=== PATIENT | female | born 1995 | race Caucasian/White ===

== ENCOUNTER 2016-10-30 16:51 | Emergency (ER) | payer OTHER ==
[2016-10-30 17:04] VITALS: BP 114/73; PULSE 100; TEMP 98.6; BMI 31.7
--- NOTE | 2016-10-30 19:37 | PDOC ---
History of Present Illness - General Chief Complaint: Cold Symptoms Stated Complaint: BOTH EAR PAIN/COUGH Time Seen by Provider: 10/30/16 17:53 History Source: Patient Exam Limitations: No Limitations - History of Present Illness Initial Comments: 10/30/16 19:31 RIGHT EAR PAIN X 4 DAYS; WITH FEVER Timing/Duration: reports: just prior to arrival Severity: reports: mild Associated Symptoms: reports: earache, nasal congestion, nasal drainage. denies : denies symptoms, cough, fever/chills, wheezing Past History - Past Medical History Allergies/Adverse Reactions: Allergies Allergy/AdvReac Type Severity Reaction Status Date / Time shrimp Allergy Mild Hives Verified 10/30/16 16:54 Fish Containing Products Allergy Verified 10/30/16 16:54 fish derived Allergy Verified 10/30/16 16:54 Home Medications: Ambulatory Orders Vitamins (Sjr) - 1 tab PO DAILY 10/23/15 Acetaminophen [Tylenol .Regular Strength -] 650 mg PO Q3H PRN #0 tablet Benzocaine [Americaine 20% Marsing -] 1 spray TP PRN PRN #0 bottle 10/25/15 Ferrous Sulfate [Feosol] 325 mg PO BIDWM ud 10/25/15 Ibuprofen [Motrin -] 200 mg PO Q4H PRN #0 tablet 10/25/15 Vitamins (Sjr) - 1 tab PO DAILY tablet 10/25/15 Asthma: No Cancer: No Cardiac Disorders: No Diabetes: No HTN: No Seizures: No Thyroid Disease: No Other medical history: none - Immunization History Immunization Up to Date: Yes - Psycho/Social/Smoking Cessation Hx Anxiety: No Suicidal Ideation: No Smoking History: Never smoked Have you smoked in the past 12 months: No Information on smoking cessation initiated: No Hx Alcohol Use: No Drug/Substance Use Hx: No Substance Use Type: None Hx Substance Use Treatment: No Review of Systems - Review of Systems Constitutional: No: Chills, Fever, Malaise HEENTM: Yes: Ear Pain, Ear Discharge. No: Eye Pain, Nose Congestion, Throat Pain Respiratory: No: Cough Cardiac (ROS): No: Symptoms Reported ABD/GI: No: Symptoms Reported : No: Symptoms Reported Musculoskeletal: No: Symptoms Reported *Physical Exam - Vital Signs Last Vital Signs Temp Pulse Resp BP Pulse Ox 98.6 F 100 H 18 114/73 100 10/30/16 16:55 10/30/16 16:55 10/30/16 16:55 10/30/16 16:55 10/30/16 16:55 - Physical Exam General Appearance: Yes: Appropriately Dressed. No: Apparent Distress HEENT: positive: LINDA, Normal ENT Inspection, Nasal Congestion, Rhinorrhea, TM Bulging, TM Dull, TM Erythema (RIGHT EAR SMALL AMOUNT OF FLUIDS IN CANAL WITH STS TO ANTERIOR CANAL ). negative: Normal Voice, Symmetrical, Pharynx Normal Neck: positive: Supple. negative: Tender, Rigid, Lymphadenopathy (R), Lymphadenopathy (L) Respiratory/Chest: positive: Lungs Clear. negative: Chest Tender, Respiratory Distress, Accessory Muscle Use ED Treatment Course - ADDITIONAL ORDERS Additional order review: Laboratory Results 10/30/16 19:00 Urine HCG, Qual Negative Medical Decision Making - Medical Decision Making 10/30/16 19:34 WILL TREAT WITH AUGMENTIN; AND FOLLOW UP WITH DR PACHECO IN 10 DAYS *DC/Admit/Observation/Transfer Diagnosis at time of Disposition: Actinic otitis externa Qualifiers: Laterality: right Chronicity: acute Qualified Code(s): H60.511 - Acute actinic otitis externa, right ear - Discharge Dispostion Disposition: HOME Condition at time of disposition: Stable Admit: No - Patient Instructions Additional Instructions: MOTRIN FOR PAIN; FOLLOW UP IN [address] PACHECO - Post Discharge Activity Work/School Note: Back to Work
== END 2016-10-30 21:11 | disposition home or self-care (01) ==
LOC: JER 16:51 → JERFT 16:51
DX: H60.511 Acute actinic otitis externa, right ear (principal)
CPT/HCPCS: 84703; 99281-25

== ENCOUNTER 2016-11-18 14:25 | Emergency (ER) | payer OTHER ==
[2016-11-18 14:54] VITALS: BMI 31.3
--- NOTE | 2016-11-18 15:11 | PDOC ---
History of Present Illness - General Chief Complaint: Allergic Reaction Stated Complaint: ALLERGIC REACTION, FACE NUMBNESS Time Seen by Provider: 11/18/16 15:09 - History of Present Illness Initial Comments: 11/18/16 15:11 CHIEF COMPLAINT: allergic reaction HISTORY OF PRESENT ILLNESS: 21 yo F with no significant PMH presents to ED with allergic reaction s/p ingesting new medication. Patient states she has had cold symptoms since and has been taking NyQuil and DayQuil without any problems. Today a neighbor recommended that she take "Bronchochem", which she did around 1pm. Around 2 pm she started feeling dizziness and numbness and swelling to her face. She also reports tongue and lip tingling, and feels that "the pills are still in my throat." No recent travel or sick contacts. PAST MEDICAL HISTORY: Denies past medical history FAMILY HISTORY: Denies SOCIAL HISTORY:Denies tobacco, alcohol, illicit drug use. SURGICAL HISTORY: Denies ALLERGIES: No known drug allergies REVIEW OF SYSTEMS General/Constitutional: Denies fever or chills. Denies weakness, weight change. HEENT: I have a rash and tingling on my face. Denies change in vision. Denies ear pain or discharge. Denies sore throat. Cardiovascular: Denies chest pain or shortness of breath. Respiratory: Denies cough, wheezing, or hemoptysis. Gastrointestinal: Denies nausea, vomiting, diarrhea or constipation. Denies rectal bleeding. Genitourinary: Denies dysuria, frequency, or change in urination. Musculoskeletal: Denies joint or muscle swelling or pain. Denies neck or back pain. Skin and breasts: Denies rash or easy bruising. Neurologic: Denies headache, vertigo, loss of consciousness, or loss of sensation. PHYSICAL EXAM General Appearance: Well-appearing, appropriately dressed. No apparent distress , no intoxication. HEENT: Mildly erythematous macular rash to face. No swelling to mouth, tongue, lips, uvula, tonsils. Nasal congestion. EOMI, PERRLA, normal ENT inspection, normal voice, TMs normal, pharynx normal. No conjunctival pallor. No photophobia, scleral icterus. Neck: Supple. Trachea midline. No tenderness, rigidity, carotid bruit, stridor , lymphadenopathy, or thyromegaly. Respiratory/Chest: Lungs CTAB. Cardiovascular: RRR. S1, S2. Vascular Pulses: Dorsalis-Pedis (R): 2+, Dorsalis-Pedis (L): 2+ Gastrointestinal/Abdominal: Normal bowel sounds. Abdomen soft, non-distended. No tenderness or rebound tenderness. No organomegaly, pulsatile mass, guarding , hernia, hepatomegaly, splenomegaly. Musculoskeletal/Extremities: Normal inspection. FROM of all extremities, normal capillary refill. Pelvis Stable. No CVA tenderness. No tenderness to extremities, pedal edema, swelling, erythema or deformity. Integumentary: See HEENT. Appropriate color, dry, warm. No cyanosis, jaundice or rash Neurologic: lvn lpn II-XII intact. Fully oriented, alert. Appropriate mood/affect. Motor strength 5/5. No appreciable EOM palsy, facial droop or sensory deficit. Past History - Past Medical History Allergies/Adverse Reactions: Allergies Allergy/AdvReac Type Severity Reaction Status Date / Time shrimp Allergy Mild Hives Verified 11/18/16 14:48 Fish Containing Products Allergy Verified 11/18/16 14:48 fish derived Allergy Verified 11/18/16 14:48 Home Medications: Ambulatory Orders Oseltamivir Phosphate [Tamiflu] 75 mg PO BID #10 capsule 11/18/16 Asthma: No Cancer: No Cardiac Disorders: No Diabetes: No HTN: No Seizures: No Thyroid Disease: No Other medical history: denies - Immunization History Immunization Up to Date: Yes - Psycho/Social/Smoking Cessation Hx Anxiety: No Suicidal Ideation: No Smoking History: Never smoked Have you smoked in the past 12 months: No Hx Alcohol Use: No Drug/Substance Use Hx: No Substance Use Type: None Hx Substance Use Treatment: No *Physical Exam - Vital Signs Last Vital Signs Temp Pulse Resp BP Pulse Ox 98.3 F 115 H 18 114/77 98 11/18/16 14:49 11/18/16 14:49 11/18/16 14:49 11/18/16 14:49 11/18/16 14:49 Medical Decision Making - Medical Decision Making 11/18/16 16:28 21 yo F with no significant PMH presents to ED with allergic reaction s/p ingesting new medication. -50 mg Benadryl Patient has tingling and foreign object sensation to throat despite no appreciable swelling. -10 mg Decadron Flu swab sent as patient does currently have URI symptoms. Patient is positive for influenza A. Tamiflu 75 mg bid x 5 days rx sent to pharm. Advised patient to take medication as prescribed and follow up with primary care doctor next week. Advised patient of signs and symptoms for return to ED. Patient verbalized understanding and agrees to plan. *DC/Admit/Observation/Transfer Diagnosis at time of Disposition: Influenza A - Discharge Dispostion Disposition: HOME Condition at time of disposition: Stable Admit: No - Prescriptions Prescriptions: Oseltamivir Phosphate [Tamiflu] 75 mg PO BID #10 capsule - Referrals Referrals: Gwen Parra MD [Primary Care Provider] - - Patient Instructions Printed Discharge Instructions: DI for Adverse Drug Reaction -- Allergic Additional Instructions: It is unclear which ingredient in BronchoChem you may be allergic to, please discontinue taking the medication and avoid any medications containing. Please take medication as prescribed. You may take Motrin (ibuprofen) as needed for fever/pain. Follow up with your primary care doctor next week. If you experience fever unrelieved by Motrin, nausea, vomiting, diarrhea, or any new or worsening symptoms, please return to the ER. - Post Discharge Activity Work/School Note: Back to Work
[2016-11-18] MEDS ORDERED: SODIUM CHLORIDE 0.9% 500 ML INFUS.BAG IV ONE (15:14)
[2016-11-18] MEDS ORDERED: DEXAMETHASONE LIQUID 0.5 MG/5 ML 240 ML BULK BOTTLE PO ONE (15:26)
[2016-11-18] MEDS ORDERED: DEXAMETHASONE SOD PHOSPHATE 10 MG/1 ML VIAL ONE (15:31)
[2016-11-18 17:26] VITALS: BP 115/68; PULSE 90; TEMP 99.2
== END 2016-11-18 17:18 | disposition home or self-care (01) ==
LOC: JER 14:25
PROC: 3E033GC Introduction of Other Therapeutic Substance into Peripheral Vein, Percutaneous Approach (ICD-10-PCS; principal; 2016-11-18)
DX: L27.0 Generalized skin eruption due to drugs and medicaments taken internally (principal); T50.995A Adverse effect of other drugs, medicaments and biological substances, initial encounter; J09.X2 Influenza due to identified novel influenza A virus with other respiratory manifestations; Y92.038 Other place in apartment as the place of occurrence of the external cause
CPT/HCPCS: 84703; 87804; 96374; 99282-25

== ENCOUNTER → 2017-04-16 | Emergency (ER) | payer OTHER ==
[~2017-04-16] MED LIST: ONDANSETRON 4 MG/2 ML VIAL IVPUSH ONE; ONDANSETRON 4 MG/2 ML VIAL ONE; SODIUM CHLORIDE 1,000 ML IV STA
[2017-04-16 20:30] VITALS: TEMP 98.1; BMI 32.1
--- NOTE | 2017-04-16 21:51 | PDOC ---
History of Present Illness - History of Present Illness Initial Comments: 04/16/17 23:06 pt is 22F, 7 weeks complaining 8/10 suprapubic pain, frontal headache and vomitingx5 since 5pm today. The suprapubic pain is worse with movement. no vaginal bleed or other discharge. No recent strenuous activity, falls or traumas. No one is the household is sick.Pt only take vitamins. OBGYN is Lesvia Jaquez, was seen last , scheduled to be seen next . LAst U/S was a [place] 2 weeks ago and was normal. This is the patient 2nd . <Ayaan Amaro - Last Filed: 04/17/17 00:05> <Neftaly Patel - Last Filed: 04/17/17 00:48> - General Chief Complaint: Pain Stated Complaint: 7 WEEKS /HEADACE Time Seen by Provider: 04/16/17 21:24 Past History - Past Medical History Asthma: No Cancer: No Cardiac Disorders: No Diabetes: No HTN: No Seizures: No Thyroid Disease: No - Immunization History Immunization Up to Date: Yes - Psycho/Social/Smoking Cessation Hx Anxiety: No Suicidal Ideation: No Smoking History: Never smoked Have you smoked in the past 12 months: No Hx Alcohol Use: No Drug/Substance Use Hx: No Substance Use Type: None Hx Substance Use Treatment: No <Ayaan Amaro - Last Filed: 04/17/17 00:05> <Neftaly Patel - Last Filed: 04/17/17 00:48> - Past Medical History Allergies/Adverse Reactions: Allergies Allergy/AdvReac Type Severity Reaction Status Date / Time shrimp Allergy Mild Hives Verified 04/16/17 20:30 Fish Containing Products Allergy Verified 04/16/17 20:30 fish derived Allergy Verified 04/16/17 20:30 Home Medications: Ambulatory Orders Oseltamivir Phosphate [Tamiflu] 75 mg PO BID #10 capsule 11/18/16 Ondansetron [Zofran *Odt*] 8 mg SL PRN #3 od.tablet 04/16/17 Review of Systems - Review of Systems Constitutional: Yes: See HPI HEENTM: No: Symptoms Reported Respiratory: No: Cough, Orthopnea, Shortness of Breath, Stridor, Wheezing Cardiac (ROS): No: Chest Pain, Palpitations, Syncope, Chest Tightness ABD/GI: Yes: See HPI, Poor Appetite. No: Abd. Pain w/ defecation : No: Burning, Dysuria, Discharge, Hematuria Musculoskeletal: No: Symptoms Reported Integumentary: No: Symptoms Reported <Ayaan Amaro - Last Filed: 04/17/17 00:05> *Physical Exam - Vital Signs Last Vital Signs Temp Pulse Resp BP Pulse Ox 98.1 F 74 18 113/66 99 04/16/17 20:28 04/16/17 20:28 04/16/17 20:28 04/16/17 20:28 04/16/17 20:28 - Physical Exam General Appearance: Yes: Nourished, Appropriately Dressed. No: Apparent Distress HEENT: positive: EOMI, LINDA, Normal ENT Inspection. negative: Pale Conjunctivae Neck: positive: Trachea midline, Normal Thyroid, Supple Cardiovascular: positive: Regular Rhythm, Regular Rate, S1, S2. negative: Bradycardia, Tachycardia Vascular Pulses: Carotid (R): 2+, Carotid (L): 2+, Dorsalis-Pedis (R): 2+, Doralis-Pedis (L): 2+ Integumentary: positive: Normal Color, Dry. negative: Erythema, Diaphoresis Neurologic: positive: recreation engineer II-XII NML intact, Fully Oriented, Alert, Normal Mood/ Affect <Ayaan Amaro - Last Filed: 04/17/17 00:05> - Vital Signs Last Vital Signs Temp Pulse Resp BP Pulse Ox 98.1 F 74 18 113/66 99 04/16/17 20:28 04/16/17 20:28 04/16/17 20:28 04/16/17 20:28 04/16/17 20:28 <Neftaly Patel - Last Filed: 04/17/17 00:48> ED Treatment Course - LABORATORY CBC & Chemistry Diagram: 04/16/17 21:49 04/16/17 21:49 <Ayaan Amaro - Last Filed: 04/17/17 00:05> - LABORATORY CBC & Chemistry Diagram: 04/16/17 21:49 04/16/17 21:49 - ADDITIONAL ORDERS Additional order review: Laboratory Results 04/16/17 04/16/17 04/16/17 22:30 22:07 21:49 Sodium 136 Potassium 3.8 Chloride 104 Carbon Dioxide 25 Anion Gap 7 L BUN 7 D Creatinine 0.4 L Creat Clearance w eGFR > 60 Random Glucose 87 Calcium 9.0 Total Bilirubin 0.5 D AST 14 L D ALT 24 D Alkaline Phosphatase 80 Total Protein 7.1 Albumin 4.0 Beta HCG, Quant 64589.6 Urine Color Urine Appearance Urine pH Urine Protein Urine Glucose (UA) Urine Ketones Urine Blood Urine Nitrite Urine Bilirubin Urine Urobilinogen Ur Leukocyte Esterase Urine HCG, Qual Positive 04/16/17 21:49 Sodium Potassium Chloride Carbon Dioxide Anion Gap BUN Creatinine Creat Clearance w eGFR Random Glucose Calcium Total Bilirubin AST ALT Alkaline Phosphatase Total Protein Albumin Beta HCG, Quant Urine Color Yellow Urine Appearance Clear Urine pH 6.0 Urine Protein Negative Urine Glucose (UA) Negative Urine Ketones Trace H Urine Blood Negative Urine Nitrite Negative Urine Bilirubin Negative Urine Urobilinogen Negative Ur Leukocyte Esterase Negative Urine HCG, Qual 04/16/17 21:49 RBC 4.20 MCV 90.0 MCHC 33.4 RDW 13.0 D MPV 9.0 Neutrophils % 73.8 Lymphocytes % 18.8 D Monocytes % 7.1 Eosinophils % 0.1 Basophils % 0.2 - Medications Given in the ED: ED Medications Discontinued Medications Generic Name Dose Route Start Last Admin Trade Name Freq PRN Reason Stop Dose Admin Sodium Chloride 1,000 mls @ 1,000 mls/hr 04/16/17 21:46 04/16/17 22:16 Normal Saline - IV 04/16/17 22:45 1,000 mls/hr ASDIR STA Administration Ondansetron HCl 4 mg 04/16/17 21:47 04/16/17 22:06 Zofran Injection IVPUSH 04/16/17 21:48 4 mg ONCE ONE Administration <Neftaly Patel - Last Filed: 04/17/17 00:48> Medical Decision Making - Medical Decision Making 04/16/17 22:58 pt is 22F, 7 weeks complaining 8/10 suprapubic pain, headache and vomitingx5 since 5pm today. Urine HCG and beta HCG was ordered, confirmed, CBC, CMP showed no abnormality. Feels much better after course of zofran and NS bolus. Patient walks and feels better. Has appointment with SUREKHA Jaquez on . Ok with being discharged tonight with Rx for Zofran. 04/16/17 23:02 07/10/17 23:06 <Ayaan Amaro - Last Filed: 04/17/17 00:05> *DC/Admit/Observation/Transfer <Ayaan Amaro - Last Filed: 04/17/17 00:05> <Neftaly Patel - Last Filed: 04/17/17 00:48> Diagnosis at time of Disposition: Hyperemesis arising during - Discharge Dispostion Disposition: HOME Condition at time of disposition: Good - Prescriptions Prescriptions: Ondansetron [Zofran *Odt*] 8 mg SL PRN #3 od.tablet - Referrals Referrals: Gwen Parra MD [Primary Care Provider] - - Patient Instructions Printed Discharge Instructions: Hyperemesis Gravidarum
[2017-04-16 22:01] LABS: BASOPHIL 0.2 % (0-2.0); EOSINOPHIL 0.1 % (0-4.5); MCH 30.1 pg (25.7-33.7); MCHC 33.4 g/dl (32.0-36.0); NEUTROPHILS 73.8 % (42.8-82.8); PLATELET COUNT 233 K/MM3 (134-434); WHITE BLOOD COUNT 9.9 K/mm3 (4.0-10.0)
[2017-04-16 22:23] LABS: URINE APPEARANCE CLEAR; URINE BILIRUBIN NEGATIVE (NEGATIVE); URINE BLOOD NEGATIVE (NEGATIVE); URINE COLOR YELLOW; URINE GLUCOSE (UA) NEGATIVE (NEGATIVE); URINE KETONE TRACE (NEGATIVE); URINE LEUK ESTERASE NEGATIVE (NEGATIVE); URINE NITRITE NEGATIVE (NEGATIVE); URINE PROTEIN NEGATIVE (NEGATIVE); URINE UROBILINOGEN NEGATIVE E.U./dl (0.2-1.0)
[2017-04-16 22:31] LABS: ANION GAP 7 (8-16); CO2 25 mmol/L (21-32); CREATININE 0.4 mg/dL (0.55-1.02); GLUCOSE,RANDOM 87 mg/dL (74-106); SGOT/AST 14 U/L (15-37); SGPT/ALT 24 U/L (12-78)
[2017-04-16 22:32] LABS: ALK PHOS 80 U/L (45-117); BILIRUBIN,TOTAL 0.5 mg/dL (0.2-1.0); TOT PROT 7.1 g/dl (6.4-8.2)
--- NOTE | 2017-04-17 00:09 | PDOC ---
Attending Attestation - Resident Resident Name: Ayaan Amaro - ED Attending Attestation I have performed the following: I have examined & evaluated the patient, The case was reviewed & discussed with the resident, I agree w/resident's findings & plan, Exceptions are as noted <Neftaly Patel - Last Filed: 04/17/17 00:08> - Resident Resident Name: Ayaan Amaro - ED Attending Attestation I have performed the following: I have examined & evaluated the patient, The case was reviewed & discussed with the resident, I agree w/resident's findings & plan, Exceptions are as noted - HPI HPI: 04/17/17 00:11 The patient is a 22 year old female (7 weeks ) with no significant past medical history who presents to the ED for suprapubic pain since 5am. Patient rates pain as 8/10 and reports having associated nausea and vomiting, but no diarrhea. Her pain is worsen with movement. Denies vaginal bleeding or discharge. Patient also has complaints of frontal headache. No recent sick contacts or recent travels. Patient is scheduled to be seen by her DRYCLEANER next . Her last ultrasound was 2 weeks ago at [place], which was normal. The patient denies fever, chills, cough, SOB, chest pain, and palpitations. The patient denies dysuria, hematuria, urgency, and frequency. PCP: Dr. Gwen Latham-Sergo DRYCLEANER: Dr. Lesvia Jaquez - Physicial Exam PE: 04/17/17 00:11 GENERAL: Well-appearing, well-nourished. No apparent distress. HEENT: Normocephalic, atraumatic. PERRL, EOM intact. CARDIOVASCULAR: Normal S1, S2. Regular rate and rhythm. PULMONARY: Clear to auscultation bilaterally. ABDOMEN: Soft, non-distended, non-tender. EXTREMITIES: Normal ROM in all four extremities. No gross deformities. SKIN: Warm, dry. No rash NEUROLOGICAL: No focal neurological deficits. <Martha Sandoval - Last Filed: 04/17/17 00:21> Medical Decision Making - Medical Decision Making 04/17/17 00:11 Documentation prepared by Martha Sandoval, acting as regional medical director for Neftaly Patel MD/DO. <Bharrat,Martha - Last Filed: 04/17/17 00:21>
[2017-04-17 00:58] VITALS: BP 103/63; PULSE 65
== END | disposition home or self-care (01) ==
LOC: JER 20:22
PROC: 3E0337Z Introduction of Electrolytic and Water Balance Substance into Peripheral Vein, Percutaneous Approach (ICD-10-PCS; principal; 2017-04-16)
PROC: 3E033GC Introduction of Other Therapeutic Substance into Peripheral Vein, Percutaneous Approach (ICD-10-PCS; 2017-04-16)
DX: O26.891 Other specified pregnancy related conditions, first trimester (principal); O21.0 Mild hyperemesis gravidarum; Z3A.01 Less than 8 weeks gestation of pregnancy
CPT/HCPCS: 36415; 80053; 81003; 84702; 84703; 85025; 96361; 96374; 99283-25

== ENCOUNTER 2017-05-29 18:24 | Emergency (ER) | payer OTHER ==
[2017-05-29 18:33] VITALS: BP 126/68; PULSE 92; TEMP 98.9; BMI 28.3
--- NOTE | 2017-05-29 20:26 | PDOC ---
History of Present Illness - General History Source: Patient Exam Limitations: No Limitations - History of Present Illness Initial Comments: 05/29/17 21:02 The patient is a 22 year old female (13 weeks, ) with no significant past medical history who presents to the ED for 4 days of nausea, vomiting, and diarrhea. Patient reports her boyfriend was also ill with similar symptoms last week. She also has some complaints of pelvic discomfort, which she describes as a pressure-like sensation. Denies vaginal bleeding or discharge. Denies dysuria , hematuria, urgency, and frequency. Patient states she still feels the baby moving. States she felt warm earlier today, which resolved throughout the day. The patient denies diaphoresis, chills, cough, SOB, chest pain, and palpitations. Allergies: NKDA Social History: No alcohol, tobacco, or drug use reported. Past Surgical History: None reported PCP: Dr. Gwen Singh TRIPLE VALVE TESTER: Dr. Lesvia Jaquez <Martha Sandoval - Last Filed: 05/29/17 21:02> - General History Source: Patient <Henrry Mckee - Last Filed: 05/29/17 23:48> - General Chief Complaint: Diarrhea Stated Complaint: STOMACH PAIN/13 WKS Time Seen by Provider: 05/29/17 20:23 Past History <Martha Sandoval - Last Filed: 05/29/17 21:02> - Past Medical History Asthma: No Cancer: No Cardiac Disorders: No Diabetes: No HTN: No Seizures: No Thyroid Disease: No - Immunization History Immunization Up to Date: Yes - Psycho/Social/Smoking Cessation Hx Anxiety: No Suicidal Ideation: No Smoking History: Never smoked Have you smoked in the past 12 months: No Information on smoking cessation initiated: No Hx Alcohol Use: No Drug/Substance Use Hx: No Substance Use Type: None Hx Substance Use Treatment: No <Henrry Mckee - Last Filed: 05/29/17 23:48> - Past Medical History Allergies/Adverse Reactions: Allergies Allergy/AdvReac Type Severity Reaction Status Date / Time shrimp Allergy Mild Hives Verified 05/29/17 18:31 Fish Containing Products Allergy Verified 05/29/17 18:31 fish derived Allergy Verified 05/29/17 18:31 Home Medications: Ambulatory Orders Oseltamivir Phosphate [Tamiflu] 75 mg PO BID #10 capsule 11/18/16 Ondansetron [Zofran *Odt*] 8 mg SL PRN #3 od.tablet 04/16/17 Metoclopramide HCl [Reglan] 10 mg PO QID #60 tablet 05/29/17 Review of Systems - Review of Systems Able to Perform ROS?: Yes Comments:: 05/29/17 21:03 CONSTITUTIONAL: +subjective fever Absent: no chills, no fatigue EYES: Absent: visual changes ENT: Absent: ear pain, no sore throat CARDIOVASCULAR: Absent: chest pain, no palpitations RESPIRATORY: Absent: cough, no SOB GI: +pelvic discomfort, nausea, vomiting, diarrhea Absent: no constipation GENITOURINARY: Absent: dysuria, no frequency, no hematuria MUSCULOSKELETAL: Absent: back pain, no arthralgia, no myalgia SKIN: Absent: rash NEURO: Absent: headache <Martha Sandoval - Last Filed: 05/29/17 21:02> *Physical Exam - Vital Signs Last Vital Signs Temp Pulse Resp BP Pulse Ox 98.9 F 92 H 18 126/68 99 05/29/17 18:32 05/29/17 18:32 05/29/17 18:32 05/29/17 18:32 05/29/17 18:32 - Physical Exam Comments: 05/29/17 21:03 GENERAL: Well-appearing, well-nourished. No apparent distress. HEENT: Normocephalic, atraumatic. PERRL, EOM intact. Dry oral mucosa. CARDIOVASCULAR: Normal S1, S2. Regular rate and rhythm. PULMONARY: Clear to auscultation bilaterally. ABDOMINAL: Soft. Non-tender. Non-distended. No rebound or guarding. Normoactive bowel sounds. PELVIC: Deferred to ultrasound. EXTREMITIES: Normal ROM in all four extremities. No gross deformities. SKIN: Warm, dry. No rash NEUROLOGICAL: No focal neurological deficits. <Martha Sandoval - Last Filed: 05/29/17 21:02> - Vital Signs Last Vital Signs Temp Pulse Resp BP Pulse Ox 98.9 F 92 H 18 126/68 99 05/29/17 18:32 05/29/17 18:32 05/29/17 18:32 05/29/17 18:32 05/29/17 18:32 <Henrry Mckee - Last Filed: 05/29/17 23:48> ED Treatment Course - LABORATORY CBC & Chemistry Diagram: 05/29/17 20:45 05/29/17 20:45 - ADDITIONAL ORDERS Additional order review: Laboratory Results 05/29/17 20:45 Urine Color Yellow Urine Appearance Clear Urine pH 6.0 Urine Protein Negative Urine Glucose (UA) Negative Urine Ketones 2+ H Urine Blood 1+ H Urine Nitrite Negative Urine Bilirubin Negative Urine Urobilinogen Negative Ur Leukocyte Esterase Negative Urine RBC 1 Urine WBC 2 Ur Epithelial Cells Rare Urine Mucus Moderate 05/29/17 20:45 RBC 4.00 MCV 89.0 MCHC 34.3 RDW 12.7 MPV 8.7 Neutrophils % 83.2 H Lymphocytes % 11.6 D Monocytes % 5.1 Eosinophils % 0.0 D Basophils % 0.1 - Medications Given in the ED: ED Medications Discontinued Medications Generic Name Dose Route Start Last Admin Trade Name Jonyq PRN Reason Stop Dose Admin Metoclopramide HCl 10 mg 05/29/17 20:28 05/29/17 20:53 Reglan Injection - IVPUSH 05/29/17 20:29 10 mg ONCE ONE Administration <Martha Sandoval - Last Filed: 05/29/17 21:02> - LABORATORY CBC & Chemistry Diagram: 05/29/17 20:45 05/29/17 20:45 <Henrry Mckee - Last Filed: 05/29/17 23:48> Medical Decision Making - Medical Decision Making 05/29/17 23:01 Dr. Mckee: The scribe's documentation has been prepared under my direction and personally reviewed by me in its entirery. I confirm that the note above accurately reflects all work, treatment, procedures, and medical decision making performed by me. <Henrry Mckee - Last Filed: 05/29/17 23:48> *DC/Admit/Observation/Transfer - Attestations Scribe Attestion: 05/29/17 21:03 Documentation prepared by Martha Sandoval, acting as medical information officer for Henrry Mckee DO. <Martha Sandoval - Last Filed: 05/29/17 21:02> - Discharge Dispostion Admit: No <Henrry Mckee - Last Filed: 05/29/17 23:48> Diagnosis at time of Disposition: 13 weeks gestation of , Dehydration - Discharge Dispostion Disposition: HOME Condition at time of disposition: Stable - Prescriptions Prescriptions: Metoclopramide HCl [Reglan] 10 mg PO QID #60 tablet - Referrals Referrals: Lesvia Jaquez MD [Primary Care Provider] - - Patient Instructions Printed Discharge Instructions: Managing Symptoms of , DI for Dehydration -- Adult
[2017-05-29] MEDS ORDERED: METOCLOPRAMIDE HCL INJECTION 10 MG/2 ML VIAL IVPUSH ONE (20:28)
[2017-05-29] MEDS ORDERED: SODIUM CHLORIDE 1,000 ML IV STA ×2 (20:28)
[2017-05-29] MEDS ORDERED: METOCLOPRAMIDE HCL INJECTION 10 MG/2 ML VIAL ONE (20:34)
[2017-05-29 20:54] LABS: BASOPHIL 0.1 % (0-2.0); MCH 30.5 pg (25.7-33.7); MCHC 34.3 g/dl (32.0-36.0); MEAN PLT VOLUME 8.7 fl (7.5-11.1); NEUTROPHILS 83.2 % (42.8-82.8); PLATELET COUNT 210 K/MM3 (134-434); RDW 12.7 % (11.6-15.6); WHITE BLOOD COUNT 7.9 K/mm3 (4.0-10.0)
[2017-05-29 20:58] LABS: URINE APPEARANCE CLEAR; URINE BILIRUBIN NEGATIVE (NEGATIVE); URINE BLOOD 1+ (NEGATIVE); URINE COLOR YELLOW; URINE GLUCOSE (UA) NEGATIVE (NEGATIVE); URINE KETONE 2+ (NEGATIVE); URINE LEUK ESTERASE NEGATIVE (NEGATIVE); URINE NITRITE NEGATIVE (NEGATIVE); URINE PROTEIN NEGATIVE (NEGATIVE); URINE UROBILINOGEN NEGATIVE mg/dL (0.2-1.0)
[2017-05-29 21:00] LABS: URINE MUCUS MODERATE; URINE RBC 1 /hpf (0-3); URINE WBC 2 /hpf (3-5)
[2017-05-29 21:17] LABS: ALBUMIN 3.5 g/dl (3.4-5.0); ANION GAP 13 (8-16); BILIRUBIN,TOTAL 0.5 mg/dL (0.2-1.0); CALCIUM 9.1 mg/dL (8.5-10.1); CO2 22 mmol/L (21-32); CREATININE 0.3 mg/dL (0.55-1.02); GLUCOSE,RANDOM 80 mg/dL (74-106); MAGNESIUM 1.9 mg/dL (1.8-2.4); SGOT/AST 11 U/L (15-37); SGPT/ALT 20 U/L (12-78); TOT PROT 7.2 g/dl (6.4-8.2)
[2017-05-29 21:33] LABS: ALK PHOS 75 U/L (45-117)
== END 2017-05-30 00:10 | disposition home or self-care (01) ==
LOC: JER 18:24
PROC: 3E033GC Introduction of Other Therapeutic Substance into Peripheral Vein, Percutaneous Approach (ICD-10-PCS; principal; 2017-05-29)
DX: O26.891 Other specified pregnancy related conditions, first trimester (principal); E86.0 Dehydration; Z3A.13 13 weeks gestation of pregnancy
CPT/HCPCS: 36415; 76801-TC; 80053; 81003; 81015; 83690; 83735; 84702; 85025; 96374; 99282-25

== ENCOUNTER 2017-08-20 23:48 | Emergency (ER) | payer OTHER ==
[2017-08-21 00:58] VITALS: BP 119/74; PULSE 82; TEMP 98.8; BMI 29.9
--- NOTE | 2017-08-21 01:13 | PDOC ---
Attending Attestation - Resident Resident Name: LisaMindy - ED Attending Attestation I have performed the following: I have examined & evaluated the patient, The case was reviewed & discussed with the resident, I agree w/resident's findings & plan, Exceptions are as noted - HPI HPI: 08/21/17 03:13 22y F at approximately 25 weeks gestation presents with mid chest pain, onset approximately 3pm. Pt staets it persistented so presented to the ED, she states she tried to eat something prior to coming to the ED and she had 1 episode of nbhb vomiting. no associated fever/chills, sob, cough, hemoptysis, leg swelling, abd pain, cramping, vag bleeding. On exam the patient is well appearing in no distress with a gravid nontender abdomen, mild tenderness ot her chest wall. consider costocondritis vs gerd pt given pepcid with improvement of her symptoms. suspect possible gerd with imroveent w/ pepcid maalox will dc the pt with pmd fu return precautions were discused I discussed the physical exam findings, ancillary test results and final diagnoses with the patient. I answered all of the patient's questions. The patient was satisfied with the care received and felt comfortable with the discharge plan and treatment plan. The patient will call their primary care physician within 24 hours to arrange follow-up and will return to the Emergency Department with any new, persistent or worsening symptoms. - Physicial Exam PE: 08/21/17 03:19 see above - Medical Decision Making 08/21/17 03:19 see above Heart Score/ECG Review - ECG Impressions Comment:: 08/21/17 04:05 Twelve-lead EKG was performed and reviewed by me. There is normal sinus rhythm with a normal rate. rate of 72 The axis is normal. The intervals are normal. There is normal R wave progression There are no ST or T wave abnormalities. Impression: Normal twelve-lead EKG
--- NOTE | 2017-08-21 01:20 | PDOC ---
History of Present Illness - General Chief Complaint: Chest Pain Stated Complaint: CHEST PAIN Time Seen by Provider: 08/21/17 01:00 History Source: Patient Exam Limitations: No Limitations - History of Present Illness Initial Comments: 22 YOF who is (25 wks and followed by OB with normal US and other workup so far) who presents c/o constant midsternal 8/10 "squishing" chest pain radiating to her upper back since 3 pm on 08/20/17. The pain improves only with sleeping. She has not taken medication for the pain and has never had pain like this before. She had one episode of vomiting food without blood shortly after arriving to the ED, but denies other symptoms (no fever, chills, diarrhea, constipation, bloody stool, abdominal pain, shortness of breath, headache, leg swelling, vaginal bleeding or diacharge, dysuria, or h/o GERD. Past History - Past Medical History Allergies/Adverse Reactions: Allergies Allergy/AdvReac Type Severity Reaction Status Date / Time shrimp Allergy Mild Hives Verified 08/21/17 00:29 Fish Containing Products Allergy Verified 08/21/17 00:29 fish derived Allergy Verified 08/21/17 00:29 Home Medications: Ambulatory Orders Oseltamivir Phosphate [Tamiflu] 75 mg PO BID #10 capsule 11/18/16 Ondansetron [Zofran *Odt*] 8 mg SL PRN #3 od.tablet 04/16/17 Metoclopramide HCl [Reglan] 10 mg PO QID #60 tablet 05/29/17 Asthma: No Cancer: No Cardiac Disorders: No Diabetes: No HTN: No Seizures: No Thyroid Disease: No - Immunization History Immunization Up to Date: Yes - Suicide/Smoking/Psychosocial Hx Smoking History: Never smoked Have you smoked in the past 12 months: No Information on smoking cessation initiated: No Hx Alcohol Use: No Drug/Substance Use Hx: No Substance Use Type: None Hx Substance Use Treatment: No Review of Systems - Review of Systems Constitutional: No: Chills, Fever, Unexplained wgt Loss HEENTM: No: Nose Congestion, Throat Pain Respiratory: No: Cough, Shortness of Breath Cardiac (ROS): Yes: Chest Pain. No: Palpitations ABD/GI: Yes: Nausea, Vomiting. No: Constipated, Diarrhea : No: Burning, Dysuria, Hematuria Musculoskeletal: No: Back Pain, Neck Pain Integumentary: No: Bruising, Rash Neurological: No: Headache, Numbness, Tingling, Weakness, Dizziness Endocrine: No: Unexplained Weight Gain, Unexplained Weight Loss *Physical Exam - Vital Signs Last Vital Signs Temp Pulse Resp BP Pulse Ox 98.8 F 82 14 119/74 99 08/21/17 00:30 08/21/17 00:30 08/21/17 00:30 08/21/17 00:30 08/21/17 00:30 - Physical Exam General Appearance: Yes: Nourished, Appropriately Dressed, Other (pleasant and well-appearing adult female, answering questions appropriately, appears comfortable). No: Apparent Distress HEENT: positive: EOMI, Normal Voice, Hearing Grossly Normal. negative: Scleral Icterus (R), Scleral Icterus (L), Nasal Congestion Neck: positive: Trachea midline, Supple. negative: Tender, Rigid Respiratory/Chest: positive: Chest Tender (tenderness to compression of the anterior inferior chest wall which reproduces the chief complaint exactly), Lungs Clear, Normal Breath Sounds. negative: Respiratory Distress, Crackles, Rhonchi, Stridor, Wheezing Cardiovascular: positive: Regular Rhythm, Regular Rate. negative: Murmur Gastrointestinal/Abdominal: positive: Normal Bowel Sounds, Soft, Other (abdomen gravid with fundus at umbilicus). negative: Tender, Organomegaly, Pulsatile Mass, Guarding Musculoskeletal: positive: Normal Inspection. negative: Decreased Range of Motion, Vertebral Tenderness Extremity: positive: Normal Capillary Refill, Normal Inspection, Normal Range of Motion. negative: Tender, Cyanosis Integumentary: positive: Normal Color, Dry, Warm. negative: Erythema, Rash, Bruising Neurologic: positive: financial analyst accountant II-XII NML intact (grossly), Fully Oriented, Alert, Normal Mood/Affect, Normal Response, Motor Strength 5/5 Heart Score/ECG Review - History History: Slightly suspicious - Electrocardiogram EKG: Normal - Age Age: </= 45 - Risk Factors Based on the list above the patient has:: No risk factors known *DC/Admit/Observation/Transfer Diagnosis at time of Disposition: GERD (gastroesophageal reflux disease) Qualifiers: Esophagitis presence: esophagitis presence not specified Qualified Code(s): K21.9 - Gastro-esophageal reflux disease without esophagitis - Discharge Dispostion Disposition: HOME Condition at time of disposition: Stable Admit: No - Referrals Referrals: Lauri Washington [Primary Care Provider] - - Patient Instructions Printed Discharge Instructions: DI for Chest Pain Additional Instructions: You were seen in the ER for lower chest pain during your . We did lab work and your tests were normal. We also gave you Pepcid, Maalox, and IV fluids and this helped with your symptoms. We believe your symptoms may be due to acid reflux in . Please go to the pharmacy and cone picker [id number] Pepcid and Maalox. Avoid caffeine, spicy foods, and acidic food. Follow up with your OB doctor and/or PCP, or you can return to the ER for any new or worsening symptoms like severe pain, vomiting that you cannot control, shortness of breath , palpitations, or other symptoms. - Post Discharge Activity
[2017-08-21] MEDS ORDERED: MAG HYDROX/AL HYDROX/SIMETH 355 ML ORAL.SUSP PO ONE (01:22)
[2017-08-21] MEDS ORDERED: FAMOTIDINE 20 MG/50 ML IVPB 20 MG/50 ML MG IVPB ONE (01:22)
[2017-08-21] MEDS ORDERED: MAG HYDROX/AL HYDROX/SIMETH 30 ML UNIT-DOSE CUP ONE (01:40)
[2017-08-21 01:47] LABS: URINE APPEARANCE SLCLOUDY; URINE BILIRUBIN NEGATIVE (NEGATIVE); URINE BLOOD NEGATIVE (NEGATIVE); URINE COLOR YELLOW; URINE GLUCOSE (UA) NEGATIVE (NEGATIVE); URINE KETONE 1+ (NEGATIVE); URINE NITRITE NEGATIVE (NEGATIVE); URINE PROTEIN NEGATIVE (NEGATIVE); URINE UROBILINOGEN NEGATIVE mg/dL (0.2-1.0)
[2017-08-21 02:00] LABS: BASOPHIL 0.1 % (0-2.0); EOSINOPHIL 0.2 % (0-4.5); MCH 30.9 pg (25.7-33.7); MEAN CELL VOLUME 88.2 fl (80-96); MEAN PLT VOLUME 8.8 fl (7.5-11.1); NEUTROPHILS 81.6 % (42.8-82.8); PLATELET COUNT 215 K/MM3 (134-434); RDW 13.4 % (11.6-15.6); WHITE BLOOD COUNT 10.3 K/mm3 (4.0-10.0)
[2017-08-21 02:38] LABS: ALBUMIN 2.8 g/dl (3.4-5.0); ANION GAP 13 (8-16); BILIRUBIN,TOTAL 0.2 mg/dL (0.2-1.0); CO2 21 mmol/L (21-32); CREATININE 0.3 mg/dL (0.55-1.02); GLUCOSE,RANDOM 88 mg/dL (74-106); MAGNESIUM 1.7 mg/dL (1.8-2.4); PHOSPHOROUS 3.8 mg/dL (2.5-4.9); SGOT/AST 10 U/L (15-37); SGPT/ALT 12 U/L (12-78); TOT PROT 6.3 g/dl (6.4-8.2)
[2017-08-21 02:39] LABS: ALK PHOS 99 U/L (45-117)
[2017-08-21 10:36] LABS: URINE LEUK ESTERASE Negative (NEGATIVE)
--- NOTE | 2017-08-23 12:32 | EKG ---
Test Reason : Blood Pressure : / mmHG Vent. Rate : 072 BPM Atrial Rate : 072 BPM P-R Int : 128 ms QRS Dur : 082 ms QT Int : 412 ms P-R-T Axes : 019 023 024 degrees QTc Int : 451 ms NORMAL SINUS RHYTHM NORMAL ECG NO PREVIOUS ECGS AVAILABLE Confirmed by DEVYN BARCENAS MD ([id number]) on 08/23/2017 12:32:19 PM Referred By: Confirmed By:DEVYN BARCENAS MD
== END 2017-08-21 04:16 | disposition home or self-care (01) ==
LOC: JER 23:48
PROC: 3E033GC Introduction of Other Therapeutic Substance into Peripheral Vein, Percutaneous Approach (ICD-10-PCS; principal; 2017-08-20)
DX: O26.892 Other specified pregnancy related conditions, second trimester (principal); K21.9 Gastro-esophageal reflux disease without esophagitis; Z3A.25 25 weeks gestation of pregnancy
CPT/HCPCS: 36415; 80053; 81003; 83690; 83735; 84100; 85025; 87086; 93005; 93010; 96365; 99282-25

== ENCOUNTER 2017-11-24 05:22 | Emergency (ER) | payer OTHER ==
[2017-11-24 05:46] VITALS: BMI 30.4
[2017-11-24] MEDS ORDERED: SODIUM CHLORIDE 1,000 ML IV STA (06:28)
[2017-11-24] MEDS ORDERED: OSELTAMIVIR PHOSPHATE 75 MG CAPSULE PO ONE (08:01)
[2017-11-24] MEDS ORDERED: ACETAMINOPHEN 325 MG TABLET (FP) PO ONE (08:01)
[2017-11-24 08:04] LABS: URINE APPEARANCE CLEAR; URINE BILIRUBIN NEGATIVE (NEGATIVE); URINE BLOOD NEGATIVE (NEGATIVE); URINE COLOR LTYELLOW; URINE GLUCOSE (UA) NEGATIVE (NEGATIVE); URINE KETONE 1+ (NEGATIVE); URINE LEUK ESTERASE NEGATIVE (NEGATIVE); URINE NITRITE NEGATIVE (NEGATIVE); URINE PROTEIN NEGATIVE (NEGATIVE); URINE UROBILINOGEN NEGATIVE mg/dL (0.2-1.0)
[2017-11-24] MEDS ORDERED: ACETAMINOPHEN 325 MG TABLET (FP) ONE (08:05)
[2017-11-24] MEDS ORDERED: OSELTAMIVIR PHOSPHATE 75 MG CAPSULE ONE (08:05)
[2017-11-24 08:09] LABS: BASO % 0.1 % (0-2.0); HEMATOCRIT 31.7 % (32.4-45.2); HEMOGLOBIN 10.3 GM/dL (10.7-15.3); LYMPH % 5.5 % (8-40); MCH 26.8 pg (25.7-33.7); MCHC 32.6 g/dl (32.0-36.0); MEAN CELL VOLUME 82.3 fl (80-96); MEAN PLT VOLUME 9.5 fl (7.5-11.1); NEUT % 87.4 % (42.8-82.8); PLATELET COUNT 228 K/MM3 (134-434); RBC 3.85 M/mm3 (3.60-5.2); RDW 14.2 % (11.6-15.6); WHITE BLOOD COUNT 11.7 K/mm3 (4.0-10.0)
--- NOTE | 2017-11-24 08:13 | PDOC ---
History of Present Illness - General History Source: Patient Exam Limitations: No Limitations - History of Present Illness Initial Comments: 11/24/17 08:18 The patient is a 22-year-old female who is 38-weeks , , with no significant past medical history, who presents to the ED with 2 days of flu- like symptoms. The patient states that her son swabbed positive for the flu and soon after she began to develop fever, chills, cough, sneezing, nausea, vomiting , and diarrhea. On exam, the patient had a temperature of 100.5 degrees. She denies having any nausea at this time but reports some sharp abdominal pain. The patient denies any vaginal discharge or vaginal bleeding. Denies any shortness of breath or chest pain. VOLUNTEER SERVICES SPECIALIST: Dr. Lesvia Jaquez <Maranda Roberts - Last Filed: 11/24/17 09:39> - General History Source: Patient Exam Limitations: No Limitations <Will Benz - Last Filed: 11/24/17 10:26> - General Chief Complaint: Nausea/Vomiting Stated Complaint: FEVER,VOMITING Time Seen by Provider: 11/24/17 07:15 Past History <Maranda Roberts - Last Filed: 11/24/17 09:39> - Past Medical History Asthma: No Cancer: No Cardiac Disorders: No COPD: No Diabetes: No HTN: No Seizures: No Thyroid Disease: No - Reproductive History Is Patient Now?: Yes (38) (#): 3 Para: 1 Therapeutic (s) & number: No Spontaneous : 1 - Immunization History Immunization Up to Date: Yes - Suicide/Smoking/Psychosocial Hx Smoking History: Never smoked Have you smoked in the past 12 months: No Hx Alcohol Use: No Drug/Substance Use Hx: No Substance Use Type: None Hx Substance Use Treatment: No <Will Benz - Last Filed: 11/24/17 10:26> - Past Medical History Allergies/Adverse Reactions: Allergies Allergy/AdvReac Type Severity Reaction Status Date / Time shrimp Allergy Mild Hives Verified 11/24/17 05:28 Fish Containing Products Allergy Verified 11/24/17 05:28 fish derived Allergy Verified 11/24/17 05:28 Home Medications: Ambulatory Orders Ferrous Sulfate [Feosol] 325 mg PO DAILY 11/16/17 Vit/Iron Fum/Folic AC [ Tablet] 1 each PO DAILY 11/16/17 Oseltamivir Phosphate [Tamiflu] 75 mg PO BID #10 capsule 11/24/17 Review of Systems - Review of Systems Able to Perform ROS?: Yes Comments:: 11/24/17 08:18 GENERAL/CONSTITUTIONAL: (+)fever or chills. No weakness. HEAD, EYES, EARS, NOSE AND THROAT: (+)Sneezing. No change in vision. No ear pain or discharge. No sore throat. CARDIOVASCULAR: No chest pain or shortness of breath. RESPIRATORY: (+)Cough. No wheezing, or hemoptysis. GASTROINTESTINAL: (+)nausea, vomiting, diarrhea, abdominal pain. No constipation. GENITOURINARY: No dysuria, frequency, or change in urination. MUSCULOSKELETAL: No joint or muscle swelling or pain. No neck or back pain. SKIN: No rash NEUROLOGIC: No headache, vertigo, loss of consciousness, or change in strength/ sensation. ENDOCRINE: No increased thirst. No abnormal weight change. HEMATOLOGIC/LYMPHATIC: No anemia, easy bleeding, or history of blood clots. ALLERGIC/IMMUNOLOGIC: No hives or skin allergy. <Maranda Roberts - Last Filed: 11/24/17 09:39> *Physical Exam - Vital Signs Last Vital Signs Temp Pulse Resp BP Pulse Ox 100.5 F H 129 H 17 107/53 99 11/24/17 08:03 11/24/17 08:03 11/24/17 08:03 11/24/17 08:03 11/24/17 08:03 - Physical Exam Comments: 11/24/17 08:20 GENERAL: Awake, alert, and fully oriented, in no acute distress HEAD: No signs of trauma EYES: PERRLA, EOMI, sclera anicteric, conjunctiva clear NECK: Normal ROM, supple, no lymphadenopathy, JVD, or masses LUNGS: Breath sounds equal, clear to auscultation bilaterally. No wheezes, and no crackles HEART: Regular rate and rhythm, normal S1 and S2, no murmurs, rubs or gallops ABDOMEN: (+)Gravid abdomen. Soft, nontender, normoactive bowel sounds. No guarding, no rebound. No masses EXTREMITIES: Normal range of motion, no edema. No clubbing or cyanosis. No cords, erythema, or tenderness NEUROLOGICAL: Cranial nerves II through XII grossly intact. Normal speech, normal gait SKIN: (+)Wam to touch. Dry, normal turgor, no rashes or lesions noted. <Maranda Roberts - Last Filed: 11/24/17 09:39> - Vital Signs Last Vital Signs Temp Pulse Resp BP Pulse Ox 100.5 F H 129 H 17 107/53 99 11/24/17 08:03 11/24/17 08:03 11/24/17 08:03 11/24/17 08:03 11/24/17 08:03 <Will Benz - Last Filed: 11/24/17 10:26> ED Treatment Course - LABORATORY CBC & Chemistry Diagram: 11/24/17 07:30 11/24/17 07:30 - Medications Given in the ED: ED Medications Discontinued Medications Generic Name Dose Route Start Last Admin Trade Name Freq PRN Reason Stop Dose Admin Acetaminophen 650 mg 11/24/17 08:01 11/24/17 08:10 Tylenol - PO 11/24/17 08:02 650 mg ONCE ONE Administration Sodium Chloride 1,000 mls @ 1,000 mls/hr 11/24/17 06:28 11/24/17 07:46 Normal Saline - IV 11/24/17 07:27 1,000 mls/hr ASDIR STA Administration Oseltamivir Phosphate 75 mg 11/24/17 08:01 11/24/17 08:10 Tamiflu - PO 11/24/17 08:02 75 mg ONCE ONE Administration <Maranda Roberts - Last Filed: 11/24/17 09:39> - LABORATORY CBC & Chemistry Diagram: 11/24/17 07:30 11/24/17 07:30 - Medications Given in the ED: ED Medications Discontinued Medications Generic Name Dose Route Start Last Admin Trade Name Freq PRN Reason Stop Dose Admin Sodium Chloride 1,000 mls @ 1,000 mls/hr 11/24/17 06:28 11/24/17 07:46 Normal Saline - IV 11/24/17 07:27 1,000 mls/hr ASDIR STA Administration <Will Benz - Last Filed: 11/24/17 10:26> Medical Decision Making - Medical Decision Making 11/24/17 08:08 A portion of this note was documented by scribe services under my direction. I have reviewed the details of the note, within reason, and agree with the documentation with the following case summary and management plan written by me. Patient treated in the ED. Nursing notes are reviewed and incorporated into the medical decision-making. Vital signs reviewed. Peripheral IV access obtained by the nurse, laboratory studies are drawn and sent, reviewed and interpreted by myself. Vital Signs Temp Pulse Resp BP Pulse Ox 100.5 F H 129 H 17 107/53 99 11/24/17 08:03 11/24/17 08:03 11/24/17 08:03 11/24/17 08:03 11/24/17 08:03 22-year-old female with no past medical history, 38 weeks , presents with flulike symptoms. She reports that her son had swab positive for influenza. Soon after, the patient started developing rhonchorous cough, tactile fevers and nausea. Denies vaginal bleeding or abdominal tenderness. Patient felt generally unwell and came to the ED. I suspect the patient likely has influenza. According to the hospital, there are no more reagents. We'll obtain labs and give fluids. Given that the patient is , will initiate tamiflu given the circumstances. Tylenol ordered for the fever. Labs are pending. Case was discussed with Jade in L&D. They accept patient to L&D, and they will follow up the labs. <Will Benz - Last Filed: 11/24/17 10:26> *DC/Admit/Observation/Transfer - Attestations Scribe Attestion: 11/24/17 08:22 Documentation prepared by Maranda Roberts, acting as anesthesiology medical doctor for Will Benz MD. <Maranda Roberts - Last Filed: 11/24/17 09:39> - Transfer to Acute Care Facility Accepting Physician:: To L&D for further management. <Will Benz - Last Filed: 11/24/17 10:26> Diagnosis at time of Disposition: Influenza-like illness - Discharge Dispostion Disposition: TRANSFER ACUTE CARE/OTHER HOSP Condition at time of disposition: Stable - Prescriptions Prescriptions: Oseltamivir Phosphate [Tamiflu] 75 mg PO BID #10 capsule - Referrals Referrals: Lauri Washington [Primary Care Provider] - - Patient Instructions Additional Instructions: Discharge patient home. Take all prescribed medications as discussed. Rest and drink at least 10 glasses of water a day to stay hydrated. Return to the hospital if your water breaks, you have vaginal bleeding, the baby is not moving or contractions 5 minutes or less apart for more than 2 hours which increase in pain. - Post Discharge Activity
[2017-11-24 08:21] LABS: ALBUMIN 2.8 g/dl (3.4-5.0); ANION GAP 13 (8-16); BILIRUBIN,TOTAL 0.4 mg/dL (0.2-1.0); BLOOD UREA NITROGEN 5 mg/dL (7-18); CALCIUM 7.8 mg/dL (8.5-10.1); CHLORIDE 105 mmol/L (98-107); CO2 20 mmol/L (21-32); CREATININE 0.5 mg/dL (0.55-1.02); GLUCOSE,RANDOM 90 mg/dL (74-106); POTASSIUM 3.6 mmol/L (3.5-5.1); SGOT/AST 16 U/L (15-37); SGPT/ALT 7 U/L (12-78); SODIUM 138 mmol/L (136-145); TOT PROT 6.5 g/dl (6.4-8.2)
[2017-11-24 08:25] LABS: ALK PHOS 257 U/L (45-117); LIPASE 60 U/L (73-393); MAGNESIUM 1.6 mg/dL (1.8-2.4); PHOSPHOROUS 3.7 mg/dL (2.5-4.9)
[2017-11-24 11:28] VITALS: BP 93/50; PULSE 120; TEMP 99.7
== END 2017-11-24 10:15 | disposition home or self-care (01) ==
LOC: JER 05:22
PROC: 3E0337Z Introduction of Electrolytic and Water Balance Substance into Peripheral Vein, Percutaneous Approach (ICD-10-PCS; principal; 2017-11-24)
DX: O26.893 Other specified pregnancy related conditions, third trimester (principal); O98.513 Other viral diseases complicating pregnancy, third trimester; J11.1 Influenza due to unidentified influenza virus with other respiratory manifestations; Z3A.38 38 weeks gestation of pregnancy
CPT/HCPCS: 36415; 80053; 81003; 83690; 83735; 84100; 85025; 87040; 87086; 99283-25

== ENCOUNTER 2017-11-24 22:35 | Inpatient (IN) | payer OTHER ==
[~2017-11-24 22:35] MED LIST changes: +DEXTROSE 5%-LACTATED RINGERS 1,000 ML IV SCH; -ONDANSETRON 4 MG/2 ML VIAL IVPUSH ONE; -ONDANSETRON 4 MG/2 ML VIAL ONE; -SODIUM CHLORIDE 1,000 ML IV STA
[2017-11-24] MEDS ORDERED: ACETAMINOPHEN INJECTION 100 ML IVPB ONE (23:11)
[2017-11-24] MEDS ORDERED: AMPICILLIN SODIUM 2 GM VIAL ONE (23:15)
--- NOTE | 2017-11-24 23:23 | HP ---
Past Medical History - Admission Chief Complaint: Contractions pain History of Present Illness: 22 yo @ 38.6 weeks gestation, EDC 12/02/17, presents to L&D c/o contractions pain associated with total body pain. She denies any rupture of membrane nor vaginal bleeding but she's febrile. History Source: Patient Limitations to Obtaining History: No Limitations - Past Medical History Pulmonary: Yes: Other (+ve ppd , chest xray neg 08/11/15). No: Asthma Gastrointestinal: Yes: Constipation Renal/: Yes: UTI ...: 3 ...Para: 1 ...EDC by [facility]: 12/02/17 Infectious Disease: Yes: STD's (hpv pos) Additional Medical History: Pap LGSIL, colposcopy done 05/10/15 - Past Surgical History Past Surgical History: Yes: None Hx Myomectomy: No Hx Transabdominal Cerclage: No - Smoking History Smoking history: Never smoked Have you smoked in the past 12 months: No - Alcohol/Substance Use Hx Alcohol Use: No History of Substance Use: reports: None - Social History Usual Living Arrangement: Yes: With Significant Other Home Medications - Allergies Allergies/Adverse Reactions: Allergies Allergy/AdvReac Type Severity Reaction Status Date / Time shrimp Allergy Mild Hives Verified 11/24/17 05:28 Fish Containing Products Allergy Verified 11/24/17 05:28 fish derived Allergy Verified 11/24/17 05:28 - Home Medications Home Medications: Ambulatory Orders Ferrous Sulfate [Feosol] 325 mg PO DAILY 11/16/17 Vit/Iron Fum/Folic AC [ Tablet] 1 each PO DAILY 11/16/17 Oseltamivir Phosphate [Tamiflu] 75 mg PO BID #10 capsule 11/24/17 Family Disease History - Family Disease History Family History: Unremarkable Review of Systems - Review of Systems Constitutional: reports: No Symptoms Eyes: reports: No Symptoms HENT: reports: No Symptoms Neck: reports: No Symptoms Cardiovascular: reports: No Symptoms Respiratory: reports: No Symptoms Gastrointestinal: reports: No Symptoms Genitourinary: reports: Pain Breasts: reports: No Symptoms Reported Musculoskeletal: reports: No Symptoms Integumentary: reports: No Symptoms Neurological: reports: No Symptoms Endocrine: reports: No Symptoms Hematology/Lymphatic: reports: No Symptoms Psychiatric: reports: No Symptoms Pain Intensity: 5 Physical Exam - Maternity Constitutional: Yes: Well Nourished Eyes: Yes: Conjunctiva Clear HENT: Yes: WNL Neck: Yes: Supple, Trachea Midline Cardiovascular: Yes: Regular Rate and Rhythm Lungs: Clear to auscultation Breast(s): Yes: WNL - Abdominal Exam/OB Number of Fetuses: Single Presentation: Vertex Contractions: Yes - Vaginal Exam/OB Dilatation (cm): 1 Effacement (%): 60 Amniotic Membrane Status: Intact Station: -3 - Physical Exam ...Motor Strength: WNL Psychiatric: Yes: Alert, Oriented Problem List - Problems (1) Fever and chills Code(s): R50.9 - FEVER, UNSPECIFIED (2) 39 weeks gestation of Code(s): Z3A.39 - 39 WEEKS GESTATION OF Assessment/Plan IUP @ 38.6 weeks gestation Fever Labor pain Admit to L&D Tylenol IVPB Ampicillin IVPB Consider IOL
[2017-11-24] MEDS ORDERED: AMPICILLIN - 2 GM in SODIUM CHLORIDE 100 ML IVPB ONE (23:30)
[2017-11-24] MEDS ORDERED: ACETAMINOPHEN 1000 MG/100 ML VIAL (NON FORMULARY) IVPB ONE (23:30)
[2017-11-24 23:51] LABS: INR 1.04 (0.82-1.09); PROTHROMBIN TIME (PATIENT) 11.8 SEC (9.98-11.88)
[2017-11-24 23:52] LABS: ANION GAP 13 (8-16); BLOOD UREA NITROGEN 4 mg/dL (7-18); CHLORIDE 105 mmol/L (98-107); CO2 20 mmol/L (21-32); CREATININE 0.4 mg/dL (0.55-1.02); GLUCOSE,RANDOM 85 mg/dL (74-106); POTASSIUM 3.3 mmol/L (3.5-5.1); SODIUM 138 mmol/L (136-145)
[2017-11-24 23:54] LABS: BASO % 0.1 % (0-2.0); HEMATOCRIT 28.7 % (32.4-45.2); HEMOGLOBIN 9.6 GM/dL (10.7-15.3); LYMPH % 3.7 % (8-40); MCH 27.3 pg (25.7-33.7); MCHC 33.5 g/dl (32.0-36.0); MEAN CELL VOLUME 81.6 fl (80-96); MEAN PLT VOLUME 9.5 fl (7.5-11.1); MONO % 5.8 % (3.8-10.2); NEUT % 90.4 % (42.8-82.8); PLATELET COUNT 205 K/MM3 (134-434); RBC 3.52 M/mm3 (3.60-5.2); RDW 14.8 % (11.6-15.6); WHITE BLOOD COUNT 11.3 K/mm3 (4.0-10.0)
[2017-11-24 23:59] VITALS: BMI 30.4
[2017-11-25] MEDS ORDERED: DINOPROSTONE 10 MG VAGINAL SUPPOSITORY VG ONE (00:05)
[2017-11-25] MEDS ORDERED: AMPICILLIN SODIUM 1 GM VIAL ONE ×6 (03:20→23:37)
[2017-11-25] MEDS: AMPICILLIN - 1 GM in SODIUM CHLORIDE 100 ML IVPB SCH ×6 (03:29→23:54)
--- NOTE | 2017-11-25 08:02 | PN ---
Progress Note (short form) - Note Progress Note: 22 yo @ 39 weeks gestation, EDC 12/02/17, admitted for contractions pain associated with fever. Patient seen and evaluated, she's on ampicillin and antipyretic. FHR : 160-170's Magdalena : Irregular contractions VE : Cervidil in place / 3 A/P : IUP @ 39 weeks Re - evaluate at noon Pitocin augmentation at 12:30 pm Anticipate Problem List - Problems (1) Fever and chills Code(s): R50.9 - FEVER, UNSPECIFIED (2) 39 weeks gestation of Code(s): Z3A.39 - 39 WEEKS GESTATION OF
[2017-11-25] MEDS ORDERED: OSELTAMIVIR PHOSPHATE 30 MG CAPSULE PO ONE (08:35)
[2017-11-25] MEDS ORDERED: TUBERCULIN PPD 5 TU/0.1ML SYRINGE (IN PATIENT USE ONLY) ID ONE (09:00)
[2017-11-25] MEDS ORDERED: ACETAMINOPHEN 500 MG TABLET (FP) PO ONE (09:00)
[2017-11-25] MEDS ORDERED: ACETAMINOPHEN 500 MG TABLET (FP) ONE (09:46)
[2017-11-25] MEDS ORDERED: OXYTOCIN 30 UNITS in 0.9% NS 30 UNIT/500 ML INFUS.BAG IVPB SCH (12:30)
[2017-11-25] MEDS ORDERED: OXYTOCIN 30 UNITS in 0.9% NS 30 UNIT/500 ML INFUS.BAG IVPB ONE (12:31)
[2017-11-25] MEDS ORDERED: PROMETHAZINE HCL 25 MG/1 ML VIAL ONE (20:57)
[2017-11-25] MEDS ORDERED: BUTORPHANOL TARTRATE 1 MG/ML VIAL IVPUSH PRN (20:57)
[2017-11-25] MEDS ORDERED: PROMETHAZINE HCL 25 MG/1 ML VIAL IVPB PRN (20:58)
--- NOTE | 2017-11-25 21:02 | PN ---
Progress Note (short form) - Note Progress Note: 22 yo @ 39 weeks gestation, EDC 12/02/17, admitted for contractions pain associated with fever. Patient seen and evaluated, she's on ampicillin and antipyretic. FHR : 150's Kirby : Regular contractions VE : /-2 AROM ( bloody fluid ) A/P : IUP @ 40 weeks Continue Pitocin augmentation Anticipate Problem List - Problems (1) Fever and chills Code(s): R50.9 - FEVER, UNSPECIFIED (2) 39 weeks gestation of Code(s): Z3A.39 - 39 WEEKS GESTATION OF
[2017-11-25] MEDS ORDERED: ACETAMINOPHEN INJECTION 100 ML IVPB ONE (21:07)
[2017-11-25] MEDS ORDERED: ACETAMINOPHEN 1000 MG/100 ML VIAL (NON FORMULARY) IVPB ONE ×2 (21:15→21:45)
[2017-11-26] MEDS ORDERED: OXYTOCIN 20 UNITS in 0.9% NS 20 UNIT/1,000 ML INFUS.BAG IV ONE ×2 (00:39→02:31)
[2017-11-26] MEDS ORDERED: ACETAMINOPHEN 325 MG TABLET (FP) PO PRN (01:41)
[2017-11-26] MEDS ORDERED: BISACODYL 10 MG SUPP.RECT RC PRN (01:41)
[2017-11-26] MEDS ORDERED: IBUPROFEN 600 MG TABLET (FP) PO PRN (01:41)
[2017-11-26] MEDS ORDERED: BENZOCAINE 28 GM HEMORRHOIDAL OINTMENT TP PRN (01:41)
[2017-11-26] MEDS ORDERED: BENZOCAINE 20% 57 GM BOTTLE TP PRN (01:41)
[2017-11-26] MEDS ORDERED: WITCH HAZEL 50% (TUCKS) 40 PAD/JAR PAD TP PRN (01:41)
[2017-11-26] MEDS ORDERED: METHYLERGONOVINE MALEATE 0.2 MG/1 ML AMP IM PRN (01:41)
--- NOTE | 2017-11-26 01:44 | PN ---
Delivery - Delivery Vaginal Delivery: Spontaneous Type of Anesthesia: Local Episiotomy/Laceration: 1st degree EBL (cc): 300 Delivery, Single - Feeding Plan Initial Plan: Elected not to breastfeed exclusively throughout hospitalization Remarks - Remarks Remarks: Normal spontaneous vaginal delivery of a live infant over first degree labial laceration. Nose / Oropharynx suctioned @ perineum. Nuchal cord x 1 clamped and cut. Placenta expelled spontaneously intact. Laceration repaired with 2.0 Biosyn.
[2017-11-26] MEDS ORDERED: OXYTOCIN 20 UNITS in 0.9% NS 20 UNIT/1,000 ML INFUS.BAG IV SCH (01:45)
[2017-11-26] MEDS ORDERED: IBUPROFEN 600 MG TABLET (FP) PO ONE (02:45)
[2017-11-26] MEDS: FERROUS SO4 325 MG TABLET (FP) PO SCH ×3 (08:26→17:27)
[2017-11-26] MEDS: PRENATAL VITAMINS W/ FOLIC ACID TABLET (FP) PO SCH (10:34)
--- NOTE | 2017-11-27 00:13 | PN ---
Post Progress Note - Subjective Subjective: feeling well afebvrile Post Day: 1 Type of Delivery: Vital Signs: Vital Signs Temperature 98.9 F 11/26/17 22:00 Pulse Rate 86 11/26/17 22:00 Respiratory Rate 18 11/26/17 22:00 Blood Pressure 106/50 11/26/17 22:00 O2 Sat by Pulse Oximetry (%) 98 11/26/17 02:45 Breast Exam: Yes: Soft Uterus: Yes: Fundus below umbilicus Abdomen/GI: Yes: Abdomen soft Lochia: Yes: Rubra Lochia, amount: Small Extremities: Yes: Calves non-tender Perineum: Yes: Intact Activity: Ambulating - Labs Labs: CBC WBC 11.3 K/mm3 (4.0-10.0) H 11/24/17 23:00 RBC 3.52 M/mm3 (3.60-5.2) L 11/24/17 23:00 Hgb 9.6 GM/dL (10.7-15.3) L 11/24/17 23:00 Hct 28.7 % (32.4-45.2) L 11/24/17 23:00 MCV 81.6 fl (80-96) 11/24/17 23:00 MCH 27.3 pg (25.7-33.7) 11/24/17 23:00 MCHC 33.5 g/dl (32.0-36.0) 11/24/17 23:00 RDW 14.8 % (11.6-15.6) 11/24/17 23:00 Plt Count 205 K/MM3 (134-434) 11/24/17 23:00 MPV 9.5 fl (7.5-11.1) 11/24/17 23:00 Neutrophils % 90.4 % (42.8-82.8) H 11/24/17 23:00 Lymphocytes % 3.7 % (8-40) L D 11/24/17 23:00 Monocytes % 5.8 % (3.8-10.2) 11/24/17 23:00 Eosinophils % 0.0 % (0-4.5) 11/24/17 23:00 Basophils % 0.1 % (0-2.0) 11/24/17 23:00 Assessment/Plan as above oob reg diet continue care
[2017-11-27] MEDS: FERROUS SO4 325 MG TABLET (FP) PO SCH ×3 (07:52→18:06)
[2017-11-27 08:04] LABS: BASO % 0.1 % (0-2.0); EOS % 0.1 % (0-4.5); HEMATOCRIT 27.1 % (32.4-45.2); HEMOGLOBIN 8.9 GM/dL (10.7-15.3); LYMPH % 21.1 % (8-40); MCHC 32.9 g/dl (32.0-36.0); MEAN CELL VOLUME 82.1 fl (80-96); MEAN PLT VOLUME 9.3 fl (7.5-11.1); MONO % 6.5 % (3.8-10.2); NEUT % 72.2 % (42.8-82.8); PLATELET COUNT 202 K/MM3 (134-434); RDW 14.6 % (11.6-15.6); WHITE BLOOD COUNT 9.5 K/mm3 (4.0-10.0)
[2017-11-27] MEDS: PRENATAL VITAMINS W/ FOLIC ACID TABLET (FP) PO SCH (09:56)
[2017-11-27] MEDS ORDERED: SENNOSIDES/DOCUSATE COMBO (SENNA PLUS) TABLET (UD) PO PRN (22:00)
--- NOTE | 2017-11-28 07:19 | PN ---
Post Progress Note - Subjective Subjective: aymtomatic Post Day: 2 Type of Delivery: Vital Signs: Vital Signs Temperature 98.3 F 11/27/17 22:00 Pulse Rate 94 H 11/27/17 22:00 Respiratory Rate 18 11/27/17 22:00 Blood Pressure 137/80 11/27/17 22:00 O2 Sat by Pulse Oximetry (%) 98 11/26/17 02:45 Breast Exam: Yes: Soft, Other (BF). No: Engorged Uterus: Yes: Fundus Firm, Fundus below umbilicus Lochia: Yes: Rubra Lochia, amount: Moderate Extremities: Yes: Calves non-tender Perineum: Yes: Intact Activity: Ambulating - Labs Labs: CBC WBC 9.5 K/mm3 (4.0-10.0) 11/27/17 06:20 RBC 3.30 M/mm3 (3.60-5.2) L 11/27/17 06:20 Hgb 8.9 GM/dL (10.7-15.3) L 11/27/17 06:20 Hct 27.1 % (32.4-45.2) L 11/27/17 06:20 MCV 82.1 fl (80-96) 11/27/17 06:20 MCH 27.0 pg (25.7-33.7) 11/27/17 06:20 MCHC 32.9 g/dl (32.0-36.0) 11/27/17 06:20 RDW 14.6 % (11.6-15.6) 11/27/17 06:20 Plt Count 202 K/MM3 (134-434) 11/27/17 06:20 MPV 9.3 fl (7.5-11.1) 11/27/17 06:20 Neutrophils % 72.2 % (42.8-82.8) D 11/27/17 06:20 Lymphocytes % 21.1 % (8-40) D 11/27/17 06:20 Monocytes % 6.5 % (3.8-10.2) 11/27/17 06:20 Eosinophils % 0.1 % (0-4.5) D 11/27/17 06:20 Basophils % 0.1 % (0-2.0) 11/27/17 06:20 Assessment/Plan stable. anemia counselled discharge today
[2017-11-28 08:32] VITALS: BP 125/77; PULSE 56; TEMP 98.5
[2017-11-28] MEDS: FERROUS SO4 325 MG TABLET (FP) PO SCH (08:55)
[2017-11-28] MEDS: PRENATAL VITAMINS W/ FOLIC ACID TABLET (FP) PO SCH (09:04)
== END 2017-11-28 12:00 | disposition home or self-care (01) | DRG 560 ==
LOC: JLDR 22:35 → J3W 11-26 03:49
PROVIDERS: ADMIT Obstetrics & Gynecology; ATTEND Obstetrics & Gynecology
PROC: 10E0XZZ Delivery of Products of Conception, External Approach (ICD-10-PCS; principal; 2017-11-26)
PROC: 0HQ9XZZ Repair Perineum Skin, External Approach (ICD-10-PCS; 2017-11-26)
DX: O75.2 Pyrexia during labor, not elsewhere classified (principal); O69.81X0 Labor and delivery complicated by cord around neck, without compression, not applicable or unspecified; O70.0 First degree perineal laceration during delivery; O28.0 Abnormal hematological finding on antenatal screening of mother; R76.11 Nonspecific reaction to tuberculin skin test without active tuberculosis; Z3A.38 38 weeks gestation of pregnancy; Z3A.39 39 weeks gestation of pregnancy; Z37.0 Single live birth
CPT/HCPCS: 36415; 59409; 71046-TC-FY; 80048; 85025; 85610; 85730; 86593; 86850; 86900; 86901

== ENCOUNTER 2018-09-09 08:48 | Emergency (ER) | payer OTHER ==
[2018-09-09 08:53] VITALS: BP 109/50; PULSE 94; TEMP 99.1; BMI 32.2
--- NOTE | 2018-09-09 09:33 | PDOC ---
Attending Attestation - HPI HPI: 09/09/18 11:03 CC: Abdominal pain HPI: The patient is a 23 year old female, with no significant past medical history, who presents to the emergency department with, 3 days of intermittent, diffuse abdominal pain. She describes her pain as spastic lasting 5 minutes every 20 minutes. She is unaware if she is . She denies recent fevers, chills, headache or dizziness. She denies recent nausea, vomit, diarrhea or constipation. She denies recent dysuria, frequency, urgency or hematuria. She denies recent chest pain or shortness of breath. Allergies: Shrimp, fish, fish derived - Physicial Exam PE: 09/09/18 11:03 Exam Vitals: Triage Vital signs reviewed General Appearance: no acute distress, well nourished well developed, Head: Atraumatic, normocephalic Neck: Supple;No Nuchal rigidity Chest Wall: Nontender Cardiac: Regular rate and rhythm, no murmurs, no rubs, no gallops, Lungs: Clear to auscultation bilateral, good air movement bilaterally, Abdomen: Soft, nondistended, normal bowel sounds, nontender to palpation Rectal: Exam deferred Extremities: Full range of motion to all extremities, no cyanosis, clubbing, or edema Skin: Warm and dry, no rashes or lesions, no petechiae Neuro: AOX3; Cranial Nerves 2-12 grossly c intact, Strength intact to all extremities, Sensation intact to all extremities, gait normal Psych: normal mood, normal affect <Ximena Moore - Last Filed: 09/09/18 11:03> - Resident Resident Name: Margaret Gallego - ED Attending Attestation I have performed the following: I have examined & evaluated the patient, The case was reviewed & discussed with the resident, I agree w/resident's findings & plan, Exceptions are as noted - Medical Decision Making 09/09/18 14:48 Results with intermittent episodes of crampy abdominal discomfort not constant no associated fever nausea vomiting diarrhea unknown last menstrual period at time of examination no abdominal pain no history of vaginal bleeding or discharge Reevaluation patient's test returned positive Ultrasound and hCG ordered Ultrasound demonstrates no evidence of ectopic HCG 170 While waiting to give patient results patient may have eloped several attempts made to find patient. We'll call patient at home with results and arrange for OB /[facility] follow-up will return to the ED with strict return instructions regarding ectopic . <Tristan Weiner - Last Filed: 09/09/18 14:48> Attestations - Attestations 09/09/18 11:04 Documentation prepared by Ximena Moore, acting as medical housekeeper for Tristan Weiner MD. <Ximena Moore - Last Filed: 09/09/18 11:03>
--- NOTE | 2018-09-09 09:43 | PDOC ---
History of Present Illness - General Chief Complaint: Pain, Acute Stated Complaint: ABD PAIN Time Seen by Provider: 09/09/18 09:11 - History of Present Illness Initial Comments: Cristin Horan is an otherwise healthy woman who presents with 3 days of intermittent abdominal pain. She descirbes the pain as sharp, non-radiating pain that comes and goes across her entire abdomen. It is mild-moderate in intensity (pt states 7/10, and then says "it's really not that bad.") The pain is not associated with movement, position, eating, or bowel movements. She has not tried anything to relieve the pain. She denies fevers, chills, n/v/d/c, new foods, recent travel, or sick contacts. Ms Horan reports that her LMP was in July, and she has no idea whether she could be . Past History - Past Medical History Allergies/Adverse Reactions: Allergies Allergy/AdvReac Type Severity Reaction Status Date / Time shrimp Allergy Mild Hives Verified 09/09/18 08:49 Fish Containing Products Allergy Verified 09/09/18 08:49 fish derived Allergy Verified 09/09/18 08:49 Home Medications: Ambulatory Orders NK [No Known Home Medication] 09/09/18 Asthma: No Cancer: No Cardiac Disorders: No COPD: No Diabetes: No HTN: No Seizures: No Thyroid Disease: No - Reproductive History (#): 3 Para: 1 Therapeutic (s) & number: No Spontaneous : 1 - Immunization History Immunization Up to Date: Yes - Suicide/Smoking/Psychosocial Hx Smoking History: Never smoked Have you smoked in the past 12 months: No Hx Alcohol Use: No Drug/Substance Use Hx: No Substance Use Type: None Hx Substance Use Treatment: No Review of Systems - Review of Systems Comments:: General: No fevers, no chills, no weight or appetite change, no malaise HEENT: No changes in vision, no changes in hearing, no congestion, no sore throat CV: No chest pain, no palpitations, no LE edema Pulm: No SOB, no cough, no wheezing GI: No nausea or vomiting, no change in bowel habits, no melena : No frequency, no urgency, no dysuria Musc: No back pain, no joint swelling, no recent injury Skin: No rash, no lesions, no erythema Endo: No excessive thirst, no heat/cold intolerance Heme: No unusual bruising or bleeding, no swollen glands Neuro: No syncope, no numbness/tingling, no focal weakness Vasc: No claudication Psych: No recent change in mood, no SI or HI *Physical Exam - Vital Signs Last Vital Signs Temp Pulse Resp BP Pulse Ox 99.1 F 94 H 18 109/50 L 100 09/09/18 08:51 09/09/18 08:51 09/09/18 08:51 09/09/18 08:51 09/09/18 08:51 - Physical Exam Comments: General: Comfortable, no acute distress HEENT: PERRL, EOMI, MMM, voice normal, normal neck ROM, no LAD Cards: RRR, no murmur appreciated Pulm: Comfortable on room air, clear to auscultation bilaterally Abd: Soft, nontender, nondistended : No CVA tenderness Ext: Atraumatic. No LE edema. ROM intact. Strength 5/5 and equal bilaterally Vasc: Extremities WWP. Palpable radial and pedal pulses bilaterally Skin: Normal color, no rashes or lesions Neuro: A&Ox3, CN grossly intact, normal speech, motor/sensory grossly intact and symmetric Psych: Mood appropriate to situation Moderate Sedation - Procedure Monitoring Vital Signs: Procedure Monitoring Vital Signs Temperature 99.1 F 09/09/18 08:51 Pulse Rate 94 H 09/09/18 08:51 Respiratory Rate 18 09/09/18 08:51 Blood Pressure 109/50 L 09/09/18 08:51 O2 Sat by Pulse Oximetry (%) 100 09/09/18 08:51 Medical Decision Making - Medical Decision Making 09/09/18 09:38 Cristin Horan is an otherwise healthy woman who presents with 3 days of intermittent, diffuse, sharp abdominal pain. - Completely benign exam. No associated symptoms suggesting an infectious process. No localization or associated symptoms to help limit the differential. - Pt unsure of whether she is . Will obtain UA and urine test. No additional labs at this time, may need - No vaginal discharge, bleeding, or spotting. LMP early July - Has not tried anything for her pain; will give PO tylenol 09/09/18 10:51 - Urine test positive. Will check bHCG and transvaginal US to estimate geestational age and confirm IUP. Given that pt has abdominal pain and does not know how far along the might be, need to r/o ectopic. - UA likely contaminated, no need to treat at this time. 09/09/18 12:25 - bHCG 149 - Discussed with pt that this is likely very early in , unlikely to see anything on US. Discussed that she will likely need to follow up for repeat tests in a few days. She states understanding. - Will still obtain US as HCG levels may not correlate if there is an ectopic 09/09/18 13:19 - US completed, reviewed. No gestational sac appreciated. Radiology report still pending. - Will most likely d/c home when radiology report is completed. 09/09/18 13:33 - US read back. Thickened endometrial stripe, no identified - D/C home. Patient will need to be seen in 2-3 days for repeat bHCG and repeat US. 09/09/18 17:10 - [place] that pt did not receive her discharge paperwork prior to leaving the ED - Called Ms Horan via phone at 17:00. Discussed US and lab results. Discussed follow up for repeat bHCG and US in 48-72 hrs. She states understanding and will present to the ED/fast track for a repeat blood test on Sunday or of this week. She also has an appointment scheduled with her usual OB/ gyne for 09/18/18 and plans to attend this appointment for follow up. Seen and discussed with Dr Weiner. Margaret Gallego PGY1 *DC/Admit/Observation/Transfer Diagnosis at time of Disposition: Abdominal pain affecting - Discharge Dispostion Condition at time of disposition: Stable Decision to Admit order: No - Referrals Referrals: Carlos Martin MD [Staff Physician] - - Patient Instructions Printed Discharge Instructions: DI for Abdominal Pain -- Early Additional Instructions: Discharge Instructions: You were seen in the emergency department for abdominal pain. You had a positive test. You also had a blood test to measure your hormone, which was 149. This is a very low number and likely means that either the is very early or that you had a "chemical ," meaning a positive test but not a real . You will need to follow up in 2-3 days to have the hormone test repeated to see if it is increasing or decreasing. Home Care: - You may take acetaminophen (Tylenol) 1000mg every 6-8 hours as needed for pain - Try using heat or cold packs to relieve your symptoms - If you have continued pain, try to write down the timing of the pain such as whether it is better/worse with eating, movement, or position Follow Up: - You will need to return to the ED in 2-3 days for a repeat hormone test and possibly another ultrasound - You have been referred to an web site manager. You do not need to schedule an appointment until it is determined whether you are - Please come back to the closest ED if you have significant worsening of your abdominal pain, severe nausea/vomiting that prevents you from eating, you start to have fever over 100F or shivering chills, or you have any medical emergency. - Post Discharge Activity
[2018-09-09] MEDS ORDERED: ACETAMINOPHEN 325 MG TABLET (FP) PO ONE (09:46)
[2018-09-09] MEDS ORDERED: ACETAMINOPHEN 325 MG TABLET (FP) ONE (09:58)
[2018-09-09 10:04] LABS: URINE APPEARANCE SLCLOUDY; URINE BILIRUBIN NEGATIVE (<2.0 mg/dL); URINE COLOR YELLOW; URINE GLUCOSE (UA) NEGATIVE (NEGATIVE); URINE KETONE TRACE (NEGATIVE); URINE LEUK ESTERASE 1+ (NEGATIVE); URINE NITRITE NEGATIVE (NEGATIVE); URINE PROTEIN 1+ (NEGATIVE); URINE UROBILINOGEN 4.0 E.U/dl mg/dL (0.2-1.0)
[2018-09-09 10:09] LABS: HCG,QUALITATIVE URINE Positive
[2018-09-09 10:21] LABS: EPI CELLS MODERATE /HPF (FEW); URINE MUCUS FEW
== END 2018-09-09 13:50 | disposition home or self-care (01) ==
LOC: JER 08:48
DX: O26.891 Other specified pregnancy related conditions, first trimester (principal); Z3A.00 Weeks of gestation of pregnancy not specified; R10.84 Generalized abdominal pain
CPT/HCPCS: 36415; 76817-TC; 81003; 81015; 84702; 84703; 87086; 99282-25

== ENCOUNTER 2018-09-11 08:30 | Emergency (ER) | payer OTHER ==
[2018-09-11 08:39] VITALS: BP 103/52; PULSE 71; TEMP 97.9; BMI 32.2
--- NOTE | 2018-09-11 09:02 | PDOC ---
History of Present Illness - General Chief Complaint: [facility] – [place] Stated Complaint: BLOODWORK Time Seen by Provider: 09/11/18 08:53 History Source: Patient Exam Limitations: Clinical Condition - History of Present Illness Initial Comments: 09/11/18 08:58 Patient with no significant past medication present for repeat beta hCG status post presented in 2 days ago with abdominal pain and found to have positive test. Beta hCG 2 days ago was 149. Patient advised to follow- up in 48 hours for repeat beta hCG. Patient report abdominal pain has resolved. Patient denies vaginal bleeding, nausea, vomiting or any other symptoms. Timing/Duration: other (2 days) Past History - Past Medical History Allergies/Adverse Reactions: Allergies Allergy/AdvReac Type Severity Reaction Status Date / Time shrimp Allergy Mild Hives Verified 09/11/18 08:36 Fish Containing Products Allergy Verified 09/11/18 08:36 fish derived Allergy Verified 09/11/18 08:36 Home Medications: Ambulatory Orders NK [No Known Home Medication] 09/09/18 Asthma: No Cancer: No Cardiac Disorders: No COPD: No Diabetes: No HTN: No Seizures: No Thyroid Disease: No Other medical history: DENIES. - Reproductive History (#): 3 Para: 1 Therapeutic (s) & number: No Spontaneous : 1 - Immunization History Immunization Up to Date: Yes - Suicide/Smoking/Psychosocial Hx Smoking History: Never smoked Have you smoked in the past 12 months: No Hx Alcohol Use: No Drug/Substance Use Hx: No Substance Use Type: None Hx Substance Use Treatment: No Review of Systems - Review of Systems Able to Perform ROS?: Yes Is the patient limited Arabic proficient: No Constitutional: No: Chills, Fever, Malaise Respiratory: No: Symptoms reported Cardiac (ROS): No: Symptoms Reported ABD/GI: No: Symptoms Reported, See HPI, Abdominal Distended, Abd. Pain w/ defecation, Blood Streaked Bowels, Constipated, Diarrhea, Difficulty Swallowing , Nausea, Poor Appetite, Poor Fluid Intake, Rectal Bleeding, Vomiting, Indigestion, Abdominal cramping, Tarry Stools, Other All Other Systems: Reviewed and Negative *Physical Exam - Vital Signs Last Vital Signs Temp Pulse Resp BP Pulse Ox 97.9 F 71 19 103/52 L 99 09/11/18 08:36 09/11/18 08:36 09/11/18 08:36 09/11/18 08:36 09/11/18 08:36 - Physical Exam General Appearance: Yes: Nourished, Appropriately Dressed. No: Apparent Distress HEENT: positive: Normal ENT Inspection Neck: positive: Supple Respiratory/Chest: negative: Respiratory Distress, Accessory Muscle Use Cardiovascular: positive: Regular Rhythm Gastrointestinal/Abdominal: positive: Flat, Soft. negative: Tender Musculoskeletal: positive: Normal Inspection Extremity: positive: Normal Inspection Integumentary: positive: Normal Color Neurologic: positive: Fully Oriented, Alert, Normal Mood/Affect Moderate Sedation - Procedure Monitoring Vital Signs: Procedure Monitoring Vital Signs Temperature 97.9 F 09/11/18 08:36 Pulse Rate 71 09/11/18 08:36 Respiratory Rate 19 09/11/18 08:36 Blood Pressure 103/52 L 09/11/18 08:36 O2 Sat by Pulse Oximetry (%) 99 09/11/18 08:36 Medical Decision Making - Medical Decision Making 09/11/18 09:00 Patient with no past medical history present for repeat beta hCG status post presented 2 days ago with abdominal pain and found to have positive . Beta hCG 2 days ago was 149. Patient reported no symptoms today. Repeat beta hCG lab ordered. Treat based on beta-HCG level. 09/11/18 15:20 beta hcg is 162 which is not an appropriate rise from 149 as it should have at least 60% rise in 48hrs hours. This is wanted and pt advised she will have to come back in 48hrs again for repeat beta hcg. Pt agrees to plan as asymptomatic now. strict follow-up instructions given to patient 09/11/18 15:23 *DC/Admit/Observation/Transfer Diagnosis at time of Disposition: Qualifiers: Weeks of gestation: less than 8 weeks Qualified Code(s): Z3A.01 - Less than 8 weeks gestation of - Discharge Dispostion Disposition: HOME Condition at time of disposition: Stable Decision to Admit order: No - Referrals - Patient Instructions Printed Discharge Instructions: Managing Symptoms of Additional Instructions: come back to ER if severe abdominal pains, vaginal bleeding - Post Discharge Activity
== END 2018-09-11 10:08 | disposition home or self-care (01) ==
LOC: JERFT 08:30
DX: O26.891 Other specified pregnancy related conditions, first trimester (principal); O36.80X0 Pregnancy with inconclusive fetal viability, not applicable or unspecified; Z3A.01 Less than 8 weeks gestation of pregnancy
CPT/HCPCS: 36415; 84702; 99281-25

== ENCOUNTER → 2018-09-17 | Emergency (ER) | payer OTHER ==
[2018-09-17 12:16] VITALS: BP 112/66; PULSE 68; TEMP 98.7; BMI 30.2
--- NOTE | 2018-09-17 13:47 | PDOC ---
History of Present Illness - General Chief Complaint: Vaginal Bleeding Stated Complaint: VAGINAL BLEEDING Time Seen by Provider: 09/17/18 12:55 Past History - Past Medical History Allergies/Adverse Reactions: Allergies Allergy/AdvReac Type Severity Reaction Status Date / Time shrimp Allergy Mild Hives Verified 09/11/18 08:36 Fish Containing Products Allergy Verified 09/11/18 08:36 fish derived Allergy Verified 09/11/18 08:36 Home Medications: Ambulatory Orders NK [No Known Home Medication] 09/09/18 Asthma: No Cancer: No Cardiac Disorders: No COPD: No Diabetes: No HTN: No Seizures: No Thyroid Disease: No - Reproductive History (#): 3 Para: 1 Therapeutic (s) & number: No Spontaneous : 1 - Immunization History Immunization Up to Date: Yes - Suicide/Smoking/Psychosocial Hx Smoking History: Never smoked Have you smoked in the past 12 months: No Information on smoking cessation initiated: No Hx Alcohol Use: No Drug/Substance Use Hx: No Substance Use Type: None Hx Substance Use Treatment: No *Physical Exam - Vital Signs Last Vital Signs Temp Pulse Resp BP Pulse Ox 98.7 F 68 18 112/66 100 09/17/18 12:13 09/17/18 12:13 09/17/18 12:13 09/17/18 12:13 09/17/18 12:13 Moderate Sedation - Procedure Monitoring Vital Signs: Procedure Monitoring Vital Signs Temperature 98.7 F 09/17/18 12:13 Pulse Rate 68 09/17/18 12:13 Respiratory Rate 18 09/17/18 12:13 Blood Pressure 112/66 09/17/18 12:13 O2 Sat by Pulse Oximetry (%) 100 09/17/18 12:13 Medical Decision Making - Medical Decision Making 09/17/18 13:47 Unable to locate patient 3 in the vertical area which she is listed as being, hallways, bathrooms ER rare for waiting room. Patient be considered [facility] E *DC/Admit/Observation/Transfer Diagnosis at time of Disposition: Vaginal bleeding - Discharge Dispostion Disposition: LEFT BEFORE GAVIN MORALES Condition at time of disposition: Unchanged/Unknown - Referrals - Patient Instructions - Post Discharge Activity
== END | disposition left against medical advice (07) ==
LOC: JER 11:45
DX: Z53.21 Procedure and treatment not carried out due to patient leaving prior to being seen by health care provider (principal)
CPT/HCPCS: 99281-25

== ENCOUNTER 2018-09-18 15:29 | Emergency (ER) | payer OTHER ==
[2018-09-18 15:41] VITALS: BP 112/53; PULSE 74; TEMP 99.1; BMI 32.2
--- NOTE | 2018-09-18 15:42 | PDOC ---
Rapid Medical Evaluation Chief Complaint: Vaginal Bleeding Time Seen by Provider: 09/18/18 15:39 Medical Evaluation: Allergies Allergy/AdvReac Type Severity Reaction Status Date / Time shrimp Allergy Mild Hives Verified 09/11/18 08:36 Fish Containing Products Allergy Verified 09/11/18 08:36 fish derived Allergy Verified 09/11/18 08:36 09/18/18 15:40 I have performed a brief in-person evaluation of this patient. The patient presents with a chief complaint of: (s/p 1 elec AB), ~8 weeks w/ vag bleed yesterday, passed large clots. US this week showed no per pt. Told her beta was was not rising appropriately. No abd pain now, n/v Pertinent physical exam findings:Unremarkable I have ordered the following:labs/ua/US The patient will proceed to the ED for further evaluation Discharge Disposition - Diagnosis Vaginal bleeding during - Referrals - Patient Instructions - Post Discharge Activity
--- NOTE | 2018-09-18 16:06 | PDOC ---
History of Present Illness - General Chief Complaint: Vaginal Bleeding Stated Complaint: Vaginal Bleeding Time Seen by Provider: 09/18/18 15:39 - History of Present Illness Initial Comments: The patient is a 23F at approx 8wks by LMP who presents for evaluation of vaginal bleeding since yesterday. Patient endorses passage of large clots. Patient also reports that she was told that her B-hCG was not rising appropriately. Patient reports 2d of pelvic pain radiating towards her back, described as cramping, intermittent, not improved or worsened by anything that she can identify. Denies fevers/chills, GRAVES, vision changes, chest pain, SOB, V/C/D, dysuria, or changes in sensation 09/18/18 16:06 Past History - Past Medical History Allergies/Adverse Reactions: Allergies Allergy/AdvReac Type Severity Reaction Status Date / Time shrimp Allergy Mild Hives Verified 09/18/18 15:41 Fish Containing Products Allergy Verified 09/18/18 15:41 fish derived Allergy Verified 09/18/18 15:41 Home Medications: Ambulatory Orders NK [No Known Home Medication] 09/09/18 Asthma: No Cancer: No Cardiac Disorders: No COPD: No Diabetes: No HTN: No Seizures: No Thyroid Disease: No - Reproductive History (#): 3 Para: 1 Therapeutic (s) & number: No Spontaneous : 1 - Immunization History Immunization Up to Date: Yes - Suicide/Smoking/Psychosocial Hx Smoking History: Never smoked Have you smoked in the past 12 months: No Information on smoking cessation initiated: No Hx Alcohol Use: No Drug/Substance Use Hx: No Substance Use Type: None Hx Substance Use Treatment: No Review of Systems - Review of Systems Able to Perform ROS?: Yes Comments:: GENERAL/CONSTITUTIONAL: No fever or chills. No weakness HEAD, EYES, EARS, NOSE AND THROAT: No change in vision. No ear pain or discharge. No sore throat CARDIOVASCULAR: No chest pain or shortness of breath RESPIRATORY: Denies cough, hemoptysis GASTROINTESTINAL: No nausea, vomiting, diarrhea or constipation GENITOURINARY: per HPI MUSCULOSKELETAL: No joint or muscle swelling or pain. No neck or back pain SKIN: No rash NEUROLOGIC: No headache, vertigo, loss of consciousness, or change in strength/ sensation ENDOCRINE: No increased thirst. No abnormal weight change HEMATOLOGIC/LYMPHATIC: No anemia, easy bleeding, or history of blood clots ALLERGIC/IMMUNOLOGIC: No hives or skin allergy 09/18/18 16:12 Is the patient limited Kittitian proficient: No *Physical Exam - Vital Signs Last Vital Signs Temp Pulse Resp BP Pulse Ox 99.1 F 74 16 112/53 L 99 09/18/18 15:38 09/18/18 15:38 09/18/18 15:38 09/18/18 15:38 09/18/18 15:38 - Physical Exam Comments: GENERAL: Awake, alert, and fully oriented, in no acute distress HEAD: No signs of trauma, normocephalic, atraumatic EYES: PERRLA, EOMI, sclera anicteric, conjunctiva clear ENT: Hearing grossly normal, nares patent, oropharynx clear without exudates. Moist mucosa LUNGS: No distress, speaks full sentences, clear to auscultation bilaterally HEART: Regular rate and rhythm, normal S1 and S2, no murmurs appreciated, peripheral pulses normal and equal bilaterally ABDOMEN: Soft, mild suprapubic TTP, normoactive bowel sounds. No guarding, no rebound EXTREMITIES : Normal inspection, Normal range of motion, no edema. No clubbing or cyanosis NEUROLOGICAL: Cranial nerves II through XII grossly intact. Normal speech, normal gait, no focal sensorimotor deficits SKIN: Warm, Dry, normal turgor, no rashes or lesions noted Pelvic External genitalia unremarkable Speculum exam with BRB in vaginal vault Vaginal wall mucosa is unremarkable Cervix visualized will BRB w/o clots from OS Bimanual exam without cervical motion tenderness, adnexal tenderness or any masses appreciated. 09/18/18 16:13 Moderate Sedation - Procedure Monitoring Vital Signs: Procedure Monitoring Vital Signs Temperature 99.1 F 09/18/18 15:38 Pulse Rate 74 09/18/18 15:38 Respiratory Rate 16 09/18/18 15:38 Blood Pressure 112/53 L 09/18/18 15:38 O2 Sat by Pulse Oximetry (%) 99 09/18/18 15:38 Medical Decision Making - Medical Decision Making The patient is a 23F at approximately 8wks by LMP who presents for evaluation of 2d of vaginal bleeding w/ clot. -B-hCG continuing to decline -Passage of clot yesterday Incomplete v Inevitable AB ED Course B-hCG continues to fall, 63 today from 160s Pending US 09/18/18 17:34 No clinical signs of anemia (no pallor, no weakness, no dizziness, no tachycardia) US 09/18/18 17:37 Pt pending US 09/18/18 18:14 Plan for D/C s/p US as patient needs to leave to grain picker her mother Plan to contact patient w/ results if abn Discharge instructions and return precautions given Patient in agreement and verbalized understanding I have transferred care of the patient to Dr. West and discussed the clinical presentation, work-up and ED course thus far. 09/18/18 18:53 *DC/Admit/Observation/Transfer Diagnosis at time of Disposition: Vaginal bleeding during - Discharge Dispostion Disposition: HOME Condition at time of disposition: Stable Decision to Admit order: No - Referrals Referrals: Lesvia Jaquez MD [Certified Nurse Director Workforce Management] - - Patient Instructions Printed Discharge Instructions: DI for Miscarriage Additional Instructions: You were seen in the Emergency Department today for evaluation of vaginal bleeding. You were examined and found to be having a spontaneous miscarriage. Please review the handout provided at discharge. Please maintain your follow up with OBGYN tomorrow. Return to the Emergency Department if you develop fevers/chills, dizziness, blurry vision, continual bleeding, worsening bleeding, worsening symptoms, or any new/concerning symptoms. - Post Discharge Activity
[2018-09-18 16:42] LABS: URINE APPEARANCE CLEAR; URINE BILIRUBIN NEGATIVE (<2.0 mg/dL); URINE COLOR LTYELLOW; URINE GLUCOSE (UA) NEGATIVE (NEGATIVE); URINE KETONE NEGATIVE (NEGATIVE); URINE LEUK ESTERASE NEGATIVE (NEGATIVE); URINE NITRITE NEGATIVE (NEGATIVE); URINE PROTEIN NEGATIVE (NEGATIVE); URINE UROBILINOGEN NEGATIVE mg/dL (0.2-1.0)
[2018-09-18 16:55] LABS: EPI CELLS RARE /HPF (FEW); URINE MUCUS RARE
--- NOTE | 2018-09-18 19:04 | PDOC ---
Attending Attestation - Resident Resident Name: Semaj Saleem - ED Attending Attestation I have performed the following: I have examined & evaluated the patient, The case was reviewed & discussed with the resident, I agree w/resident's findings & plan, Exceptions are as noted - HPI HPI: 09/18/18 18:59 The patient is a 23 year old female, , with no significant past medical history, who presents to the emergency department with lower abdominal cramping radiating to her low back and vaginal bleeding yesterday. She states she is passing large clots and describes the largest and last clot as fitting in the palm of hand. She reports light spotting at this current time and states she has not passed any more clots after the last one. Currently denies any pain or cramping. Denies F/C. The patient denies chest pain, shortness of breath, headache and dizziness. The patient denies fever, chills, nausea, vomit, diarrhea and constipation. The patient denies dysuria, frequency, urgency and hematuria. Allergies: NKDA, Shrimp - Physicial Exam PE: 09/18/18 19:03 "GENERAL: Awake, alert, and fully oriented, in no acute distress. HEAD: No signs of trauma EYES: PERRLA, EOMI, sclera anicteric, conjunctiva clear ENT: Auricles normal inspection, hearing grossly normal, nares patent, oropharynx clear without exudates. Moist mucosa NECK: Nontender, no stepoffs, Normal ROM, supple, no lymphadenopathy, JVD, or masses LUNGS: Breath sounds equal, clear to auscultation bilaterally. No wheezes, and no crackles HEART: Regular rate and rhythm, normal S1 and S2, no murmurs, rubs or gallops ABDOMEN: Soft, nontender, normoactive bowel sounds. No guarding, no rebound. No masses EXTREMITIES: Normal range of motion, no edema. No clubbing or cyanosis. No cords, erythema, or tenderness NEUROLOGICAL: Cranial nerves II through XII intact. 5/5 strength and sensation in all extremities, Normal speech, normal gait, normal cerebellar function SKIN: Warm, Dry, normal turgor, no rashes or lesions noted. : os closed, scant blood in vault, no adnexal tenderness or maxes, no CMT - Medical Decision Making 09/18/18 19:04 23 F with vaginal bleeding and cramping yesterday. Had + HCG last week with low beta that has since downtrended. Likely spontaneous AB. - Repeat HCG - TVUS 09/18/18 19:04 HCG continues to downtrend TVUS obtained but pt does not wish to wait for results Pt plans to see her OB tomorrow Pt is well appearing, with normal vitals. Clinically stable for DC at this time. I discussed the physical exam findings, ancillary test results and final diagnoses with the patient. I answered all of the patient's questions. The patient was satisfied with the care received and felt comfortable with the discharge plan and treatment plan. The patient agrees to follow up with the primary care physician within 24-72 hours.
== END 2018-09-18 19:05 | disposition home or self-care (01) ==
LOC: JER 15:29
DX: O26.891 Other specified pregnancy related conditions, first trimester (principal); Z3A.08 8 weeks gestation of pregnancy; N93.9 Abnormal uterine and vaginal bleeding, unspecified
CPT/HCPCS: 36415; 76817-TC; 81003; 81015; 84702; 86850; 86900; 86901; 99282-25

== ENCOUNTER 2018-10-02 11:00 | Emergency (ER) | payer OTHER ==
[2018-10-02 11:38] VITALS: BP 109/58; PULSE 86; TEMP 98.3; BMI 32.2
--- NOTE | 2018-10-02 12:11 | PDOC ---
History of Present Illness - General Chief Complaint: Nausea Stated Complaint: NAUSEA/VOMITING Time Seen by Provider: 10/02/18 11:46 - History of Present Illness Initial Comments: 10/02/18 12:09 23-year-old female with 2 days of diarrhea and vomiting since this morning. She is not vomiting now. No systemic symptoms. No bloody stool. She has no comorbidities. Past History - Past Medical History Allergies/Adverse Reactions: Allergies Allergy/AdvReac Type Severity Reaction Status Date / Time shrimp Allergy Mild Hives Verified 10/02/18 11:30 Fish Containing Products Allergy Verified 10/02/18 11:30 fish derived Allergy Verified 10/02/18 11:30 Home Medications: Ambulatory Orders NK [No Known Home Medication] 09/09/18 Asthma: No Cancer: No Cardiac Disorders: No COPD: No CHF: No Diabetes: No HTN: No Seizures: No Thyroid Disease: No - Reproductive History (#): 3 Para: 1 Therapeutic (s) & number: No Spontaneous : 1 - Immunization History Immunization Up to Date: Yes - Suicide/Smoking/Psychosocial Hx Smoking History: Never smoked Have you smoked in the past 12 months: No Hx Alcohol Use: No Drug/Substance Use Hx: No Substance Use Type: None Hx Substance Use Treatment: No Review of Systems - Review of Systems Constitutional: No: Fever ABD/GI: Yes: Diarrhea, Nausea, Vomiting. No: Blood Streaked Bowels, Rectal Bleeding *Physical Exam - Vital Signs Last Vital Signs Temp Pulse Resp BP Pulse Ox 98.3 F 86 16 109/58 L 100 10/02/18 11:05 10/02/18 11:05 10/02/18 11:05 10/02/18 11:05 10/02/18 11:05 - Physical Exam Comments: 10/02/18 12:10 HEAD: NC/AT EYES: Conjuntiva clear Ears: Canals and TM's normal NOSE: No d/c THROAT: Moist mucous membrances, oral pharanx clear, uvula midline NECK: Supple without adenopathy CARDIAC: S1 S2 LUNGS: CTA Full and Equal breath sounds ABDOMEN: Soft NT ND MS: Full ROM in all joints without edema NEUROLOGIC: No gross sensory or motor deficits, NVID SKIN: Normal color and temperature no lesions or rashes Moderate Sedation - Procedure Monitoring Vital Signs: Procedure Monitoring Vital Signs Temperature 98.3 F 10/02/18 11:05 Pulse Rate 86 10/02/18 11:05 Respiratory Rate 16 10/02/18 11:05 Blood Pressure 109/58 L 10/02/18 11:05 O2 Sat by Pulse Oximetry (%) 100 10/02/18 11:05 *DC/Admit/Observation/Transfer Diagnosis at time of Disposition: Gastroenteritis - Discharge Dispostion Disposition: HOME Condition at time of disposition: Stable Decision to Admit order: No - Referrals Referrals: Saira Mata MD [Staff Physician] - - Patient Instructions Printed Discharge Instructions: DI for Viral Gastroenteritis -- Adult Additional Instructions: Return to the emergency room should symptoms worsen or go unresolved. Please follow-up with the primary care physician in one to 2 days for further evaluation and treatment options. He may use Pedialyte for fluid replacement and either dry bland diet of dry toast and rice as tolerated. - Post Discharge Activity Forms/Work/School Notes: Back to Work
== END 2018-10-02 12:20 | disposition home or self-care (01) ==
LOC: JERFT 11:00 → JER 11:00 → JERFT 12:20
DX: K52.9 Noninfective gastroenteritis and colitis, unspecified (principal)
CPT/HCPCS: 99281-25

== ENCOUNTER 2023-06-27 02:13 | Emergency (ER) | payer SELFPAY ==
[2023-06-27 02:24] VITALS: BP 108/58; PULSE 77; RESP 18; TEMP 97.8; BMI 27.9
[2023-06-27] MEDS ORDERED: DEXAMETHASONE SOD PHOSPHATE 10 MG/1 ML VIAL IM ONE (03:34)
[2023-06-27] MEDS ORDERED: KETOROLAC TROMETHAMINE 15 MG/ML VIAL IM ONE (03:34)
[2023-06-27] MEDS ORDERED: CLINDAMYCIN HCL 150 MG CAPSULE (FP) PO ONE (03:34)
[2023-06-27] MEDS ORDERED: CLINDAMYCIN HCL 150 MG CAPSULE (FP) ONE (03:36)
[2023-06-27] MEDS ORDERED: DEXAMETHASONE SOD PHOSPHATE 10 MG/1 ML VIAL ONE (03:36)
[2023-06-27] MEDS ORDERED: KETOROLAC TROMETHAMINE 15 MG/ML VIAL ONE (03:37)
[2023-06-27 04:36] LABS: THROAT:GRP A STREP NOT DETECTED (NOTDETECTED)
== END 2023-06-27 03:57 | disposition home or self-care (01) ==
LOC: JER 02:13
PROC: 3E023GC Introduction of Other Therapeutic Substance into Muscle, Percutaneous Approach (ICD-10-PCS; principal; 2023-06-27)
PROC: 3E0233Z Introduction of Anti-inflammatory into Muscle, Percutaneous Approach (ICD-10-PCS; 2023-06-27)
DX: H92.02 Otalgia, left ear (principal); J02.9 Acute pharyngitis, unspecified; R59.0 Localized enlarged lymph nodes; Z20.822 Contact with and (suspected) exposure to COVID-19
CPT/HCPCS: 0241U-QW; 87651; J1100

== ENCOUNTER 2023-10-06 09:32 | Emergency (ER) | payer OTHER ==
[2023-10-06 09:37] VITALS: BP 121/71; PULSE 79; RESP 18; TEMP 98.2; BMI 30.3
[2023-10-06] MEDS ORDERED: FAMOTIDINE 20 MG TABLET PO ONE (10:02)
[2023-10-06] MEDS ORDERED: ONDANSETRON 4 MG/2 ML VIAL IVPUSH ONE (10:02)
[2023-10-06] MEDS ORDERED: MAG HYDROX/AL HYDROX/SIMETH 30 ML UNIT-DOSE CUP PO ONE (10:02)
[2023-10-06] MEDS ORDERED: SODIUM CHLORIDE 0.9% 500 ML INFUS.BAG IV ONE (10:02)
[2023-10-06] MEDS ORDERED: MAG HYDROX/AL HYDROX/SIMETH 30 ML UNIT-DOSE CUP ONE (10:34)
[2023-10-06] MEDS ORDERED: ONDANSETRON 4 MG/2 ML VIAL ONE (10:34)
[2023-10-06] MEDS ORDERED: FAMOTIDINE 20 MG TABLET ONE (10:34)
[2023-10-06 11:00] LABS: BASO % 0.3 % (0-2.0); EOS % 0.3 % (0-4.5); HEMATOCRIT 38.1 % (32.4-45.2); HEMOGLOBIN 13.1 GM/dL (10.7-15.3); LYMPH % 25.7 % (8-40); MCH 31.7 pg (25.7-33.7); MCHC 34.3 g/dl (32.0-36.0); MEAN CELL VOLUME 92.4 fl (80-96); MEAN PLT VOLUME 8.6 fl (7.5-11.1); MONO % 8.8 % (3.8-10.2); NEUT % 64.9 % (42.8-82.8); PLATELET COUNT 227 10^3/uL (134-434); RBC 4.13 M/mm3 (3.60-5.2); RDW 13.3 % (11.6-15.6); WHITE BLOOD COUNT 6.4 K/mm3 (4.0-10.0)
[2023-10-06 11:01] LABS: URINE APPEARANCE CLEAR; URINE BILIRUBIN NEGATIVE (NEGATIVE); URINE COLOR YELLOW; URINE GLUCOSE (UA) NEGATIVE (NEGATIVE); URINE KETONE NEGATIVE (NEGATIVE); URINE LEUK ESTERASE NEGATIVE (NEGATIVE); URINE NITRITE NEGATIVE (NEGATIVE); URINE PROTEIN NEGATIVE (NEGATIVE); URINE UROBILINOGEN 0.2 mg/dL (0.2-1.0)
[2023-10-06 11:17] LABS: POTASSIUM 3.8 mmol/L (3.5-5.1)
[2023-10-06 11:19] LABS: ALBUMIN 3.8 g/dl (3.4-5.0); CALCIUM 8.9 mg/dL (8.5-10.1)
[2023-10-06 11:20] LABS: BLOOD UREA NITROGEN 7.5 mg/dL (7-18)
[2023-10-06 11:23] LABS: CREATININE 0.4 mg/dL (0.55-1.3)
[2023-10-06 11:24] LABS: BILIRUBIN,TOTAL 0.6 mg/dL (0.2-1); TOT PROT 7.2 g/dl (6.4-8.2)
[2023-10-06] MEDS ORDERED: METOCLOPRAMIDE HCL INJECTION 10 MG/2 ML VIAL IVPUSH ONE (12:19)
== END 2023-10-06 13:06 | disposition home or self-care (01) ==
LOC: JER 09:32
PROC: 3E033GC Introduction of Other Therapeutic Substance into Peripheral Vein, Percutaneous Approach (ICD-10-PCS; principal; 2023-10-06)
DX: R11.2 Nausea with vomiting, unspecified (principal); R10.13 Epigastric pain; R10.11 Right upper quadrant pain; K29.00 Acute gastritis without bleeding; Z20.822 Contact with and (suspected) exposure to COVID-19
CPT/HCPCS: 0241U-QW; 36415; 80053; 81003; 83690; 84703; 85025; 87086; 99284-25

== ENCOUNTER 2024-01-13 17:03 | Emergency (ER) | payer OTHER ==
[2024-01-13 17:16] VITALS: BP 103/70; PULSE 88; RESP 18; TEMP 98.5; BMI 25.4
[2024-01-13] MEDS ORDERED: ONDANSETRON *ODT* 4 MG TABLET ONE (17:42)
[2024-01-13] MEDS ORDERED: ACETAMINOPHEN 500 MG TABLET (FP) ONE (17:42)
[2024-01-13] MEDS: ACETAMINOPHEN 500 MG TABLET (FP) PO ONE (17:46)
[2024-01-13] MEDS: ONDANSETRON *ODT* 4 MG TABLET SL ONE (17:46)
== END 2024-01-13 19:00 | disposition home or self-care (01) ==
LOC: JER 17:03
DX: R11.10 Vomiting, unspecified (principal); R19.7 Diarrhea, unspecified; R10.9 Unspecified abdominal pain; K52.9 Noninfective gastroenteritis and colitis, unspecified
CPT/HCPCS: 84703; 99283-25; Q0162